=== PATIENT | male | born 1940 | race Caucasian/White ===

== ENCOUNTER 2022-01-14 20:39 | Emergency (ER) | payer MEDICARE, OTHER, SELFPAY ==
--- NOTE | ~2022-01-14 | XR_ITS ---
XR chest 2V 01/14/2022 21:53 Indication: Cough and congestion Procedure: 2 view chest Comparison: 12/13/2015 Findings: Chronic left basilar atelectasis/scarring. No focal air space disease, pulmonary edema, ple ural effusion or suspected pneumothorax. Heart size normal. No acute osseous abnormality. Impression: 1: No acute cardiopulmonary disease. Reviewed, dictated and finalized at location A. Impression: 1: No acute cardiopulmonary disease.
[2022-01-14 20:48] VITALS: BP 148/74; PULSE 86; RESP 16; TEMP 37; O2SAT 96
--- NOTE | 2022-01-14 20:57 | ED.URI ---
HPI - URI/Sore Throat General Chief Complaint: Upper Respiratory Infection Stated Complaint: Cough/lung hurt Time Seen by Provider: 01/14/22 20:57 Source: patient and RN notes reviewed Mode of arrival: ambulatory Limitations: no limitations History of Present Illness MD elicited complaint: cough and other ( Chest congestion) Onset (ago): day(s) (1) Consistency: constant Severity: moderate Able to tolerate fluids by mouth: Yes Exacerbating factors: nothing Relieving factors: nothing Associated symptoms: chills and myalgias Treatments prior to arrival: none Related Data Home Medications Medication Instructions Recorded Confirmed Unable to Obtain Home Medications 01/14/22 01/14/22 Allergies Allergy/AdvReac Type Severity Reaction Status Date / Time Sulfa (Sulfonamide Allergy Swelling Verified 01/14/22 20:59 Antibiotics) Review of Systems Review of Systems: All systems reviewed & are unremarkable except as noted in HPI and below Constitutional: Constitutional: Reports chills Cardiovascular: Cardiovascular: Denies chest pain Respiratory: Respiratory: Denies dyspnea Gastrointestinal: Gastrointestinal: Denies nausea and Denies vomiting [facility] Past Medical History Medical History (Updated 01/14/22 @ 22:43 by Toi Davenport MD) Hyperlipidemia Prostate cancer Social History Social History (Updated 01/14/22 @ 20:59 by Toi Davenport MD) Smoking status: Never smoker Exam Const: General: healthy appearing, no acute distress and alert Nutritional Appearance: well nourished and obese centrally obese Orientation/consciousness: patient oriented x3 HENMT: Head: normal to inspection Ears: external ears normal Eyes: Conjunctivae: conjunctivae normal Pupils: Equal, round and reactive pupils present EOM: EOMs intact bilaterally Neck: Neck: normal visual inspection Resp: Effort & Inspection: normal respiratory effort Auscultation: clear to auscultation bilaterally, no rales and no rhonchi Cardio: Rate: regular rate Rhythm: regular rhythm GI: GI Palp: Yes Soft to palpation and No Tenderness to palpation present (GI) Auscultation: normal bowel sounds Back/Spine/Pelvis: Cervical Spine: cervical ROM normal Thoracic/Lumbar Spine: thoraco-lumbar ROM normal Skin: General skin exam: normal color Rashes: no rashes Neuro: General: patient oriented x3, moves all extremities, no meningeal signs, no focal motor deficits and CN's II-XI intact bilaterally Speech: normal speech Gait exam (Neuro): Normal gait present Psych: Appearance: grossly normal Mental Status: mental status grossly normal Affect: normal affect Thought content: Yes Normal thought content present Course Vital Signs Vital signs: Vital Signs Temperature 37.0 C 01/14/22 20:48 Pulse Rate 86 01/14/22 20:48 Respiratory Rate 16 01/14/22 20:48 Blood Pressure 148/74 H 01/14/22 20:48 Pulse Oximetry 96 01/14/22 20:48 Temperature 37.0 C 01/14/22 20:48 Pulse Rate 82 01/14/22 22:49 Respiratory Rate 16 01/14/22 22:49 Blood Pressure 132/70 01/14/22 22:49 Pulse Oximetry 97 01/14/22 22:49 MDM - URI/Sore Throat Differential Diagnosis Differential diagnosis: Likely upper respiratory infection, viral infection, bronchitis and influenza Lab Data Attestation: I reviewed the patient's lab results. Result diagrams: 01/14/22 21:26 01/14/22 21:26 Labs: Lab Results 01/14/22 01/14/22 01/14/22 Range/Units 21:26 21:26 21:26 WBC 5.6 (4.8-10.8) K/mm3 RBC 5.15 (4.70-6.10) M/mm3 Hgb 15.9 H (12.4-15.3) g/dL Hct 47.8 H (37.0-46.0) % MCV 92.8 (78.0-102.0) fL MCH 30.9 (27.0-31.0) pg MCHC 33.3 (32.0-36.0) g/dL RDW 13.4 (11.6-14.4) % Plt Count 184 (150-420) K/mm3 MPV 10.1 (8.7-11.0) fl Immature Gran % (Auto) 0.2 H (0.0-0.0) % Neut % (Auto) 74.8 H (50.0-70.0) % Lymph % (Auto) 10.4 L (18.0-42.0) % [place] % (Auto) 13.3 H
[2022-01-14 21:30] LABS: Basophils Absolute Auto 0.02 K/mm3 (0.00-0.10); Basophils Percent Auto 0.4 % (0.0-1.0); Eosinophils Absolute Auto 0.05 K/mm3 (0.02-0.50); Eosinophils Percent Auto 0.9 % (1.0-6.0); Hematocrit 47.8 % (37.0-46.0); Hemoglobin 15.9 g/dL (12.4-15.3); Immature Granulocyte Absolute 0.01 K/mm3 (0.00-0.00); Immature Granulocyte Percent A 0.2 % (0.0-0.0); Lymphocytes Absolute Auto 0.58 K/mm3 (1.10-4.50); Lymphocytes Percent Auto 10.4 % (18.0-42.0); Mean Corpuscular HGB Conc 33.3 g/dL (32.0-36.0); Mean Corpuscular Hemoglobin 30.9 pg (27.0-31.0); Mean Corpuscular Volume 92.8 fL (78.0-102.0); Mean Platelet Volume 10.1 fl (8.7-11.0); Monocytes Absolute Auto 0.74 K/mm3 (0.10-0.90); Monocytes Percent Auto 13.3 % (2.0-11.0); Neutrophils Absolute Auto 4.2 K/mm3 (1.7-7.2); Neutrophils Percent Auto 74.8 % (50.0-70.0); Platelet Count Result 184 K/mm3 (150-420); Red Blood Count 5.15 M/mm3 (4.70-6.10); Red Cell Distribution Width 13.4 % (11.6-14.4); White Blood Count 5.6 K/mm3 (4.8-10.8)
[2022-01-14 21:45] LABS: Alanine Aminotransferase 26 U/L (16-63); Albumin Level 3.8 g/dL (3.4-5.0); Alkaline Phosphatase 40 U/L (46-116); Anion Gap 9 mmol/L (8-16); Aspartate Amino Transferase 15 U/L (15-37); Bilirubin,Total 0.6 mg/dL (0.00-1.00); Blood Urea Nitrogen 18 mg/dL (7-18); CRP 2.4 mg/dL (0.0-0.9); Carbon Dioxide 26 mmol/L (21-32); Chloride 102 mmol/L (98-108); Estimated CRCL calculation 39 ml/min; Estimated Glomerular Filt Rate 48; Glucose 115 mg/dL (70-99); Osmolality Calculated 286 mOsm/kg (285-295); Sodium 137 mmol/L (136-145); Total Protein 7.1 g/dL (6.4-8.2)
[2022-01-14 22:07] LABS: SARS-CoV-2 RNA PCR Negative (Negative)
[2022-01-14 22:18] LABS: Influenza Control Valid (Valid)
[2022-01-14] MEDS: OSELTAMIVIR PHOSPHATE 75 MG CAPSULE PO (22:45)
[2022-01-14 22:49] VITALS: BP 132/70; PULSE 82; RESP 16; O2SAT 97
== END 2022-01-14 22:49 | disposition home or self-care (01) ==
PROVIDERS: Emergency Provider Emergency Medicine
DX: J11.1 Influenza due to unidentified influenza virus with other respiratory manifestations (principal); Z20.822 Contact with and (suspected) exposure to COVID-19
CPT/HCPCS: 71046; 80053; 85025; 86140; 87804; 99283; A9270; C9803; U0003; U0005

== ENCOUNTER 2022-02-18 22:36 | Emergency (ER) | payer MEDICARE, OTHER, SELFPAY ==
--- NOTE | ~2022-02-18 | XR_ITS ---
EXAMINATION: XR chest 1V portable DATE: 02/18/2022 23:06 INDICATION: Left anterior chest pain. TECHNIQUE: A single frontal view of the chest was obtained. COMPARISON: Chest 2 views 01/14/2022 FINDINGS: There is mild atelectasis at the lung bases. No pleural effusion or pneumothorax. The heart size is normal. IMPRESSION: 1. Mild atelectasis at the lung bases. Reviewed, dictated and finalized at location A.
[2022-02-18 22:48] VITALS: BP 155/88; PULSE 61; RESP 18; TEMP 36.3; O2SAT 99
--- NOTE | 2022-02-18 22:49 | ECG_ITS ---
Measurements Intervals [place] Rate: 61 P: 42 NV: 191 QRS: -55 QRSD: 117 T: 2 QT: 406 QTc: 411 Interpretive Statements SINUS RHYTHM LEFT ANTERIOR SUPERIOR HEMIBLOCK ABNORMAL ECG NO PREVIOUS ECG AVAILABLE FOR COMPARISON Electronically Signed On 02-19-2022 16:56:31 CDT by Maurizio Sorto M.D.
[2022-02-18 23:00] VITALS: BP 155/88; PULSE 62; RESP 18; O2SAT 96
[2022-02-18] MEDS: ASPIRIN 81 MG CHEWABLE TABLET 324 MG PO (23:11)
[2022-02-18 23:20] LABS: Basophils Absolute Auto 0.03 K/mm3 (0.00-0.10); Basophils Percent Auto 0.5 % (0.0-1.0); Eosinophils Absolute Auto 0.36 K/mm3 (0.02-0.50); Eosinophils Percent Auto 5.8 % (1.0-6.0); Hematocrit 44.5 % (37.0-46.0); Hemoglobin 14.8 g/dL (12.4-15.3); Immature Granulocyte Absolute 0.02 K/mm3 (0.00-0.00); Immature Granulocyte Percent A 0.3 % (0.0-0.0); Lymphocytes Absolute Auto 1.28 K/mm3 (1.10-4.50); Lymphocytes Percent Auto 20.6 % (18.0-42.0); Mean Corpuscular HGB Conc 33.3 g/dL (32.0-36.0); Mean Corpuscular Hemoglobin 31.1 pg (27.0-31.0); Mean Corpuscular Volume 93.5 fL (78.0-102.0); Mean Platelet Volume 10.5 fl (8.7-11.0); Monocytes Absolute Auto 0.57 K/mm3 (0.10-0.90); Monocytes Percent Auto 9.2 % (2.0-11.0); Neutrophils Percent Auto 63.6 % (50.0-70.0); Platelet Count Result 204 K/mm3 (150-420); Red Blood Count 4.76 M/mm3 (4.70-6.10); Red Cell Distribution Width 13.6 % (11.6-14.4); White Blood Count 6.2 K/mm3 (4.8-10.8)
[2022-02-18 23:39] LABS: Alanine Aminotransferase 27 U/L (16-63); Albumin Level 3.7 g/dL (3.4-5.0); Alkaline Phosphatase 42 U/L (46-116); Anion Gap 8 mmol/L (8-16); Aspartate Amino Transferase 16 U/L (15-37); Bilirubin,Total 0.4 mg/dL (0.00-1.00); Blood Urea Nitrogen 19 mg/dL (7-18); Calcium 8.9 mg/dL (8.5-10.1); Carbon Dioxide 28 mmol/L (21-32); Chloride 106 mmol/L (98-108); Estimated Glomerular Filt Rate 50; Glucose 83 mg/dL (70-99); NT Pro B Type Natriuretic Pept 104 pg/mL (0-450); Osmolality Calculated 295 mOsm/kg (285-295); Potassium 3.6 mmol/L (3.5-5.1); Sodium 142 mmol/L (136-145); Total Protein 7.5 g/dL (6.4-8.2); Troponin I 9.4 ng/L (0.00-60.4)
[2022-02-18 23:50] VITALS: BP 141/88; PULSE 61; RESP 18; O2SAT 95
[2022-02-19] VITALS (15 sets, daily range): BP systolic 117–148; BP diastolic 67–99; PULSE 50–77; RESP 16–20; TEMP 36.4; O2SAT 91–97
[2022-02-19 00:05] LABS: Add Urine Microscopic? NO; Appearance Urine Clear (Clear); Bilirubin Urine Negative (Negative); Blood Urine Negative (Negative); Color Urine Light Yellow (Yellow); Glucose Urine UA Negative (Negative); Ketones Urine Negative (Negative); Leukocyte Esterase Ur Negative LEU/UL (Negative); Nitrate Urine Negative (Negative); Protein Urine Negative (Negative); Specific Grav Ur 1.015 (1.010-1.020); Urobilinogen Urine 0.2 mg/dL (0.2-1.0)
[2022-02-19 00:14] LABS: Amphetamine Screen Urine Negative (Negative); Barbiturate Screen Urine Negative (Negative); Benzodiazepines Screen Urine Negative (Negative); Cannabinoid Screen Urine Negative (Negative); Cocaine Screen Urine Negative (Negative); Methadone Screen Urine Negative (Negative); Opiate Screen Urine Negative (Negative); Phencyclidine Screen Urine Negative (Negative)
[2022-02-19 00:47] LABS: Troponin I 10.5 ng/L (0.00-60.4)
[2022-02-19] MEDS: NITROGLYCERIN SL 0.4 MG TABLET SUBLINGUAL ×2 (01:56→02:39)
--- NOTE | 2022-02-19 02:06 | PC.NURSE ---
RN administered one 0.4mg tablet sublingual for chest pressure on the left midaxillary that he rates a 1. After 10 minutes pt has no change in pressure and still rates the pain a 1. Pt refuses any other doses of nitro at this time.
--- NOTE | 2022-02-19 02:34 | ED.CHESTPAIN ---
HPI - Chest Pain General Chief Complaint: Chest Pain Stated Complaint: chest pain Time Seen by Provider: 02/18/22 22:40 Source: patient, family and RN notes reviewed Mode of arrival: ambulatory Limitations: no limitations History of Present Illness MD complaint: chest pain Pertinent past history: coronary artery disease Onset (ago): hour(s) (6) Timing of current episode: episodic Prior episodes: Yes Onset: during rest Pain location: left chest Severity: mild Pain scale (0-10): 3 Quality: aching and heaviness Relieving factors: nothing Exacerbating factors: nothing Treatment prior to arrival: aspirin Related Data Home Medications Medication Instructions Recorded Confirmed Adult Low Dose Aspirin 81 mg PO DAILY 02/19/22 02/19/22 tadalafil 20 mg PO DAILY PRN 02/19/22 02/19/22 tamsulosin 0.8 mg [facility] 02/19/22 02/19/22 Allergies Allergy/AdvReac Type Severity Reaction Status Date / Time latex Allergy Blister Verified 02/19/22 06:09 Sulfa (Sulfonamide Allergy Swelling Verified 01/14/22 20:59 Antibiotics) Review of Systems Review of Systems: All systems reviewed & are unremarkable except as noted in HPI and below PMFSH Past Medical History Medical History Angina at rest Hyperlipidemia Prostate cancer Family History Family History Mother Skin cancer Diabetes mellitus Father Lung disease Social History Social History Smoking status: Never smoker Alcohol intake: current Drinks per week: 2 Substance use: never Spiritual care concerns: No Exam Const: General: healthy appearing, no acute distress and alert Nutritional Appearance: well nourished Orientation/consciousness: patient oriented x3 Limitations: no limitations HENMT: Head: normal to inspection Ears: external ears normal, TM's normal bilaterally and EAC's normal General nose exam: Normal external nose present and Normal nares present Face and sinus: normal facial exam and sinuses nontender Mouth: Yes moist mucous membranes Eyes: Conjunctivae: conjunctivae normal Pupils: Equal, round and reactive pupils present EOM: EOMs intact bilaterally Neck: Neck: normal visual inspection Chest: Chest palpation & inspection: normal inspection of the chest Resp: Effort & Inspection: normal respiratory effort Auscultation: clear to auscultation bilaterally Cardio: Rate: regular rate Rhythm: regular rhythm GI: Auscultation: normal bowel sounds : General: Yes bladder normal to palpation and Yes no CVA tenderness Male General Exam: Yes normal external exam Back/Spine/Pelvis: Back: no CVA tenderness Skin: General skin exam: normal color Neuro: General: patient oriented x3, moves all extremities, no meningeal signs, no focal motor deficits and CN's II-XI intact bilaterally Extrem: General: normal to inspection and no pedal edema Psych: Appearance: grossly normal and well kempt Mental Status: mental status grossly normal Affect: normal affect Attitude: cooperative Thought content: Yes Normal thought content present Course Course Emergency Course: Pt was stable, with #2 chest pain episodes while in the ED Reevaluation(s) Date: 02/18/22 Time: 23:37 Vital Signs Vital signs: Vital Signs Temperature 36.3 C L 02/18/22 22:48 Pulse Rate 61 02/18/22 22:48 Respiratory Rate 18 02/18/22 22:48 Blood Pressure 155/88 H 02/18/22 22:48 Pulse Oximetry 99 02/18/22 22:48 Temperature 36.4 C 02/19/22 05:03 Pulse Rate 60 02/19/22 05:03 Respiratory Rate 20 02/19/22 05:03 Blood Pressure 129/79 02/19/22 05:03 Pulse Oximetry 97 02/19/22 05:03 MDM - Chest Pain Differential Diagnosis Differential diagnosis: Likely unstable angina pectoris, atypical chest pain and chest pain Medical Records Data Attestation: I reviewed the patient's me
--- NOTE | 2022-02-19 02:41 | PC.NURSE ---
While talking to pt, states his pain spiked for 15 seconds to a 3. RN administered one 0.4 tablet of nitro sublingual.
--- NOTE | 2022-02-19 03:33 | PC.NURSE ---
Pt has been accepted by [facility] Dr. Hong. Waiting on room assignement.
[2022-02-19] MEDS: SODIUM CHLORIDE 0.9% IV 500 ML 999 ML IV CONT (03:50)
--- NOTE | 2022-02-19 04:48 | PC.NURSE ---
RN updated ERP on status and ERP ordered for a 500mL NSS bolus to flow at a rate of 999mLs/hr. Due to an issue with EHR, the order was unable to be put into the computer. Fluids were started in pt's left forearm at 0350. The bolus was finished at 0430.
== END 2022-02-19 05:10 | disposition short-term general hospital (02) ==
PROVIDERS: Emergency Provider Emergency Medicine
DX: I20.9 Angina pectoris, unspecified (principal); E78.5 Hyperlipidemia, unspecified; Z85.46 Personal history of malignant neoplasm of prostate; Z79.899 Other long term (current) drug therapy
CPT/HCPCS: 36415; 71045; 80053; 80307; 81003; 83880; 84484; 85025; 93005; 96360; 99285; A9270; J7040

== ENCOUNTER 2022-02-19 04:47 | Observation (INO) | payer MEDICARE, OTHER, SELFPAY ==
[2022-02-19] VITALS (8 sets, daily range): BP systolic 138–151; BP diastolic 76–95; PULSE 46–71; RESP 14–20; TEMP 36.4–36.7; O2SAT 97–100; BMI 30.1
--- NOTE | 2022-02-19 | EST_ITS ---
Patient Info Name: Derrek John Age: 82 years : 1940 Gender: Male Ht: 70 in Wt: 209 lbs BSA: 2.19 m2 HR: 45 bpm BP: 130 / 85 mmHg Exam Date: 02/19/2022 1:47 PM Exam Location: [facility] Pul[facility] Patient Status: Inpatient Admit Date: 02/19/2022 Staff Ordering Physician: Maurizio Sorto MD Digital Media Specialist: Omayra Ortiz RDCS Attending Provider: DR SORTO Exercise Technologist: Felicia Hinkle CT Exam Type: CA stress echo Study Info Indications R07.9 - Chest pain, unspecified Treadmill exercise stress echocardiogram is performed. Summary 1. Normal sinus rhythm. 2. Left axis deviation, occasional PVC. 3. Left ventricular chamber size, wall thickness, systolic and diastolic function are normal with no regional wall motion abnormalities with an estimated ejection fraction of Empty. 4. All segments augment contractility normal no ischemic wall motion abnormality. 5. Graded exercise test clinically and electrocardiographically negative at 91% of age predicted maximum heart rate. Stress Echo Findings Left Ventricle All segments augment contractility normal no ischemic wall motion abnormality. Left Ventricle Left ventricular chamber size, wall thickness, systolic and diastolic function are normal with no regional wall motion abnormalities with an estimated ejection fraction of Empty. Protocol: Jamie Stress ECG Details Stage: REST Duration (min): 1 min : 8 sec Speed (mph): 0.0 Grade (%): 0 HR (bpm): 48 SBP (mmHg): 130 DBP (mmHg): 85 METS: --- Stage: REST Duration (min): 12 min : 44 sec Speed (mph): 0.0 Grade (%): 0 HR (bpm): 52 SBP (mmHg): 130 DBP (mmHg): 85 METS: --- Stage: STAGE 1 Duration (min): 1 min : 0 sec Speed (mph): 1.7 Grade (%): 10 HR (bpm): 85 SBP (mmHg): 130 DBP (mmHg): 85 METS: --- Stage: STAGE 1 Duration (min): 2 min : 0 sec Speed (mph): 1.7 Grade (%): 10 HR (bpm): 91 SBP (mmHg): 130 DBP (mmHg): 85 METS: --- Stage: STAGE 1 Duration (min): 3 min : 0 sec Speed (mph): 1.7 Grade (%): 10 HR (bpm): 93 SBP (mmHg): 209 DBP (mmHg): 82 METS: --- Stage: STAGE 2 Duration (min): 1 min : 0 sec Speed (mph): 2.5 Grade (%): 12 HR (bpm): 107 SBP (mmHg): 209 DBP (mmHg): 82 METS: --- Stage: STAGE 2 Duration (min): 2 min : 0 sec Speed (mph): 2.5 Grade (%): 12 HR (bpm): 118 SBP (mmHg): 264 DBP (mmHg): 86 METS: --- Stage: STAGE 2 Duration (min): 3 min : 0 sec Speed (mph): 2.5 Grade (%): 12 HR (bpm): 127 SBP (mmHg): 264 DBP (mmHg): 86 METS: --- Stage: STAGE 3 Duration (min): 0 min : 2 sec Speed (mph): 0.0 Grade (%): 0 HR (bpm): 127 SBP (mmHg): 264 DBP (mmHg): 86 METS: --- Stage: RECOVERY Duration (min): 0 min : 57 sec Speed (mph): 0.0 Grade (%): 0 HR (bpm): 97 SBP (mmHg): 246 DBP (mmHg): 55 METS: --- Stage:
--- NOTE | ~2022-02-19 | CT_ITS ---
EXAMINATION: CTA chest PE protocol DATE: 02/19/2022 15:43 INDICATION: Left-sided chest pain TECHNIQUE: Computed tomography angiography (CTA) of the chest was performed with 100 mL Omnipaque-350 intravenous contrast timed to evaluate the pulmonary arteries. Coronal maximum intensity projection 3D-reconstructions were created by the technologist. The dose-length product (DLP) was 603.07 mGy-cm. Automated exposure control and iterative reconstruction technique were employed. COMPARISON: None. FINDINGS: The pulmonary arteries are well-opacified. No pulmonary embolism is identified. There is mi ld atelectasis. There is no pleural effusion or pneumothorax. No pathologically enlarged thoracic lym ph nodes are identified. The heart size is normal. Calcified coronary artery atherosclerosis is noted . There is moderate thoracic spondylosis. IMPRESSION: 1. No pulmonary embolism or acute cardiopulmonary abnormality. Reviewed, dictated and finalized at location F.
--- NOTE | 2022-02-19 05:47 | ADMGEN ---
This patient, Derrek John, was admitted to Intensive Care Unit-9. Patient/family oriented to hospital policies and general routines including ID bracelet, bed and alarms, visiting hours, pain management, procedures, bathroom and other care routines, personal items, smoking policy, room service/diet, and visiting hours. Information on how to activate the Rapid Response Team has been discussed. Patient/Family are encouraged to report perceived risks to care and to ask questions if they do not understand what they are told or what they should do.
[2022-02-19] MEDS: ASPIRIN 81 MG ENTERIC TABLET PO (09:35)
--- NOTE | 2022-02-19 11:29 | ECG_ITS ---
Measurements Intervals [place] Rate: 56 P: 58 MT: 200 QRS: -48 QRSD: 124 T: 8 QT: 413 QTc: 399 Interpretive Statements SINUS BRADYCARDIA WITH OCCASIONAL VENTRICULAR PREMATURE COMPLEXES LEFT ANTERIOR HEMIBLOCK COMPARED TO ECG 02/18/2022 22:51:35 SINUS BRADYCARDIA NOW PRESENT Electronically Signed On 02-19-2022 16:48:49 CDT by Maurizio Sorto M.D.
--- NOTE | 2022-02-19 11:30 | PM.IMHP ---
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 Hyperlipidemia Prostate cancer Family History Family History (Updated 02/19/22 @ 06:31 by Sally Aguillon RN) Mother Skin cancer Diabetes mellitus Father Lung disease Social History Social History Smoking status: Never smoker Alcohol intake: current Drinks per week: 2 Substance use: never Spiritual care concerns: No Meds Home Medications and Allergies Home Medications Medication Instructions Recorded Confirmed Type Adult Low Dose Aspirin 81 mg PO DAILY 02/19/22 02/19/22 History tadalafil 20 mg PO DAILY PRN 02/19/22 02/19/22 History tamsulosin 0.8 mg [facility] HS 02/19/22 02/19/22 History Allergies Allergy/AdvReac Type Severity Reaction Status Date / Time latex Allergy Blister Verified 02/19/22 06:09 Sulfa (Sulfonamide Allergy Swelling Verified 01/14/22 20:59 Antibiotics) Vital Signs Vital Signs - 24 hr 02/19/22 05:53 02/19/22 06:00 02/19/22 06:11 Temperature 97.6 F Pulse Rate 47 L 46 L Respiratory Rate 16 Blood Pressure 138/81 Pulse Oximetry 100 100 02/19/22 08:00 02/19/22 10:00 Temperature 97.6 F Pulse Rate 46 L 48 L Respiratory Rate 14 Blood Pressure 149/77 H Pulse Oximetry 100 Assessment and Plan Additional Plan atypical chest pain. no prior cad. ekg with no acute st t chagnes. trops negative. repeat and monitor. echo. cardiology has been consulted. lexiscan can be planned while inpatient, will leave this upto cardiology if he feels otherwise. labs okay. cxr is unremarkable. will get d dimer to evaluate for PE, however looks unlikely. msk related pain most likely. recently had influenza a month ago. BPH on tamsulosin DVT proph: SCDs Full code status
[2022-02-19 12:04] LABS: Basophils Percent Auto 0.7 % (0.2-1.2); Eosinophils Absolute Auto 0.3 K/mm3 (0-0.3); Eosinophils Percent Auto 5.8 % (0-4.4); Hematocrit 43.6 % (42.0-52.0); Hemoglobin 14.4 g/dL (14.0-18.0); Immature Granulocyte Absolute 0.02 K/mm3 (0.00-0.031); Immature Granulocyte Percent A 0.4 % (0-0.5); Lymphocytes Absolute Auto 1.34 K/mm3 (0.9-3.2); Lymphocytes Percent Auto 24.9 % (18.3-44.2); Mean Corpuscular Volume 93.8 fl (80-100); Monocytes Absolute Auto 0.5 K/mm3 (0.1-0.6); Monocytes Percent Auto 9.8 % (2.6-8.5); Neutrophils Absolute Auto 3.2 K/mm3 (1.3-6.7); Neutrophils Percent Auto 58.4 % (45.5-73.1); Platelet Count Result 200 k/mm3 (150-375); Red Blood Count 4.65 M/mm3 (4.6-6.20); White Blood Count 5.4 K/mm3 (4.5-10.0)
[2022-02-19 12:20] LABS: Anion Gap 2 mmol/L (8-16); Blood Urea Nitrogen 18 mg/dL (9-20); Calcium 8.7 mg/dL (8.4-10.2); Carbon Dioxide 30 mmol/L (22-30); Chloride 107 mmol/L (98-107); Estimated CRCL calculation 55 ml/min; Estimated Glomerular Filt Rate > 60; Glucose 91 mg/dL (65-110); Sodium 139 mmol/L (137-145)
[2022-02-19 12:21] LABS: D Dimer 0.83 ug/mL (<0.48)
[2022-02-19 12:32] LABS: Troponin I < 0.012 ng/mL (0.000-0.034)
--- NOTE | 2022-02-19 12:33 | PM.CNCAR ---
Assessment and Plan Additional Plan This is an 82-year-old gentleman with intermittent chest pain that is very atypical of a not very suggestive of myocardial ischemia. He does not have many coronary risk factors other than stating he has some mild hypercholesterolemia that his physician has told him about several times over the years. He appears to be stable there is no evidence of acute coronary syndrome. He does report having a negative coronary angiogram but once again that about 20 years ago. I am going to recommend a stress echocardiogram that I can hopefully get done this afternoon and if that is normal he can be dismissed. Maurizio Sorto MD [facility] History of Present Illness History of Present Illness Consult date/time: 02/19/22 12:33 Consult reason: chest pain Reason For Visit: Chest Pain Narrative: This is an 82-year-old man I am seeing this afternoon at the request of the hospitalist after he was transferred here from [place] emergency room with some chest pain yesterday. The patient states he is not known to have any cardiac problems prior to this and states that he had a flu-like illness about a month ago with chest congestion and coughing. This illness lasted for about 5-7 days and with when that was going on he was having some intermittent episodes of chest pain. He describes this as a brief intermittent sharp sensation in the center of the precordium without any radiation or other associated symptoms. The symptoms last about 5-7 seconds each time would happen and then resolved. He was told by his physician this is probably related to his flu and he was feeling better after the illness resolved. Yesterday he had more of the symptoms of brief episodes of sharp pain but he otherwise was feeling well. Because of this he and his family decided to come to the emergency room in [place] for evaluation. Does not look like there was any objective evidence of an acute coronary syndrome identified. His electrocardiogram demonstrates a sinus mechanism with a left anterior hemiblock but no acute ST segment abnormalities. His troponin levels were negative. He was transferred to [facility] for further evaluation. In his normal state of health he is an active gentleman even though he is getting older he does not have any exertional symptomatology he is able to carry on normal daily activities. He does not have any exertional dyspnea orthopnea PND edema or history of syncope. Interestingly he did state about 20 years ago he had a chest pain evaluation at another hospital which included a stress test that was apparently somewhat abnormal because was followed by a coronary angiogram that was negative. Once again that was about 20 years ago. Review of Systems Constitutional: Constitutional: Reports no additional constitutional complaints Eyes: Eyes: Reports no additional eye complaints ENT: Reports system reviewed and no additional complaints, except as documented Cardiovascular: Cardiovascular: Reports as per HPI Respiratory: Respiratory: Reports no additional respiratory complaints Gastrointestinal: Gastrointestinal: Reports no additional gastrointestinal complaints Musculoskeletal: Musculoskeletal: Reports no additional musculoskeletal complaints Integumentary/Breasts: Skin/Breast: Reports system reviewed and no additional complaints, except as docu Neurologic: Reports system reviewed and no additional complaints, except as documented Endocrine: Endocrine: Reports no additional endocrine complaints Hematologic/Lymphatic: Hematologic/Lymphatic: Reports no additional hematologic/lymphatic complaints Allergic/Immunologic: Allergic/Immunologic: Reports no additional allergic/immunologic complaints [facility] Past Medical History Medical History 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
--- NOTE | 2022-02-19 16:33 | PM.SD2 ---
Same Day Admit/Disch: HPI History of Present Illness Chief complaint: Chest Pain Narrative: Derrek John is a 82 year old male who presented to the outside hospital ed with chest pain on left side of his chest. he was recentlyl dignosed with influenza a month ago and had left sided chest pain back then as well. the pain was mild on his left chest stabbing in nature, non radiating, no associated nausea,vomiting, diaphoresis or sob. the pain is not exertional as well. a month ago, the pain was associated with some soreness in the same area. he denies any ongoing use of nsaids. he also denies any overt muscular exertion. no fever, chills. no cough. he was trasnferre to this hospital for cardiac evaluation. his initail troponin were negative. EKG did not reveal any acute ST T changes. serial troponins were negative as well. 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 Hyperlipidemia Prostate cancer Family History Family History (Updated 02/19/22 @ 06:31 by Sally Aguillon RN) Mother Skin cancer Diabetes mellitus Father Lung disease Social History Social History Smoking status: Never smoker Alcohol intake: current Drinks per week: 2 Substance use: never Spiritual care concerns: No Same Day Admit/Disch: Med Pre-admit Medications Home Medications Medication Instructions Recorded Confirmed Type Adult Low Dose Aspirin 81 mg PO DAILY 02/19/22 02/19/22 History tadalafil 20 mg PO DAILY PRN 02/19/22 02/19/22 [facility] 02/19/22 02/19/22 History Exam Narrative: GENERAL: The patient is well developed, not in acute distress HEENT: Nonicteric sclerae, PERRLA, EOMI. Oropharynx clear. Moist mucous membranes. Conjunctivae appear well perfused. CHEST: Chest wall is nontender. HEART: Regular rate and rhythm without murmur, rubs, or gallops LUNGS: Clear to auscultation bilaterally. no respiratory distress ABDOMEN: Soft, positive bowel sounds, non-tender, no organomegaly. SKIN: No rash, no excessive bruising, petechiae, or purpura. NEUROLOGIC: Cranial nerves II-XII intact, alert and oriented x 3, no gross motor deficits EXTREMITIES: no edema, cyanosis or clubbing Extrem: General: normal exam except as noted and no edema DS: Data Data Completed and Pending Labs on day of discharge: Labs from last 24 hours 02/19/22 02/19/22 02/19/22 11:44 11:44 11:44 WBC 5.4 RBC 4.65 Hgb 14.4 Hct 43.6 MCV 93.8 MCH 31.0 MCHC 33.0 RDW 14.0 Plt Count 200 MPV 11.0 H Immature Gran % (Auto) 0.4 Neut % (Auto) 58.4 Lymph % (Auto) 24.9 Mayes % (Auto) 9.8 H Eos % (Auto) 5.8 H Baso % (Auto) 0.7 Lymph # (Auto) 1.34 Mayes # (Auto) 0.5 Eos # (Auto) 0.3 Baso # (Auto) 0.0 Abs Immat Gran (auto) 0.02 Absolute Neuts (auto) 3.2 Absolute Nucleated RBC 0.0 Nucleated RBC % 0.0 D-Dimer Sodium 139 Potassium 4.0 Chloride 107 Carbon Dioxide 30 Anion Gap 2 L BUN 18 Creatinine 1.10 Estim Creat Clear Calc 55 Estimated GFR > 60 Glucose 91 Calcium 8.7 Troponin I < 0.012 02/19/22 11:44 WBC RBC Hgb Hct MCV MCH MCHC RDW Plt Count MPV Immature Gran % (Auto) Neut % (Auto) Lymph % (Auto) Mayes % (Auto) Eos % (Auto) Baso % (Auto) Lymph # (Auto) Mayes # (Auto) Eos # (Auto) Baso # (Auto) Abs Immat Gran (auto) Absolute Neuts (auto) Absolute Nucleated RBC Nucleated RBC % D-Dimer 0.83 H Sodium Potassium Chloride Carbon Dioxide Anion Gap BUN Creatinine Estim Creat Clear Calc Estimated GFR Glucose Calcium Troponin I Imaging Radiologist's impression: ITS Impressions Chest CTA 02/19/22 16:13 IMPRESSION: 1. No pulmonary embolism or acute cardiopulmonary abnormality. DS: Summary Hospital Course [facility]
== END 2022-02-19 17:15 | disposition home or self-care (01) ==
PROVIDERS: Admitting Provider Internal Medicine; Visit Provider Internal Medicine
DX: R07.89 Other chest pain (principal); E78.5 Hyperlipidemia, unspecified; Z85.46 Personal history of malignant neoplasm of prostate; Z79.82 Long term (current) use of aspirin
CPT/HCPCS: 36415; 71275; 80048; 84484; 85025; 85380; 93005; 93351; A9270; G0378; Q9967

== ENCOUNTER 2023-02-25 19:49 | Emergency (ER) | payer MEDICARE, OTHER, SELFPAY ==
[2023-02-25] VITALS (8 sets, daily range): BP systolic 108–177; BP diastolic 60–98; PULSE 54–84; RESP 16–20; TEMP 36.5–36.8; O2SAT 94–99
--- NOTE | ~2023-02-25 | CT_ITS ---
EXAMINATION: CTA chest DATE: 02/25/2023 21:34 INDICATION: ACUTE SUBSTERNAL CP W/ POSTERIOR BILATERAL NECK PAIN TODAY. TECHNIQUE: Computed tomography (CT) of the chest was performed with 100 mL Omnipaque-350 intravenous contrast, timed to the arterial phase. Volume rendered imaging was performed by the technologist on a separate workstation. Automated exposure control and iterative reconstruction technique were employe d. The dose-length product was 858.53 mGy-cm. COMPARISON: 02/19/2022. FINDINGS: CHEST: Thoracic aorta: Maximum diameter of the ascending aorta is 3.6 cm. Maximum diameter of the descending aorta is 3.1 cm. Mild thoracic aortic calcification. Lung parenchyma and airways: Senescent changes in the lungs. Mild dependent atelectasis/scar. The air ways are patent. Thoracic inlet, axillae and chest wall: 9 mm right thyroid lobe nodule which requires no additional w orkup. No axillary lymphadenopathy. Mediastinum: No mass or lymphadenopathy. Small hiatal hernia. Heart and pericardium: Normal heart size. No pericardial effusion. Coronary artery calcifications: Mild. Pleura: No effusion or mass. Upper abdomen: No significant finding. Simple right upper pole cyst. Thoracic bones: No acute osseous finding in the chest. IMPRESSION: No acute thoracic process detected. Specifically, there is no thoracic aortic aneurysm or dissection Reviewed, dictated and finalized at location K. IMPRESSION: No acute thoracic process detected. Specifically, there is no thoracic aortic a neurysm or dissection
--- NOTE | ~2023-02-25 | XR_ITS ---
EXAMINATION: XR chest 1V portable Exam Date/Time: 02/25/2023 20:17 CDT HISTORY: ACUTE SUBSTERNAL CHEST PAIN WITH POSTERIOR BILATERAL NECK PA Comparison: 02/18/2022. RESULT: Lines, tubes, and devices: None. Lungs and pleura: Streaky bibasilar opacities likely representing scar/atelectasis. Cardiomediastinal silhouette: Stable. Other: No acute osseous or upper abdominal finding. IMPRESSION: No acute cardiopulmonary process. Reviewed, dictated and finalized at location K.
--- NOTE | 2023-02-25 19:52 | ECG_ITS ---
Measurements Intervals [place] Rate: 74 P: 30 OR: 197 QRS: -55 QRSD: 111 T: 65 QT: 382 QTc: 424 Interpretive Statements SINUS RHYTHM INCOMPLETE RIGHT BUNDLE BRANCH BLOCK LOW QRS VOLTAGE IN PRECORDIAL LEADS LEFT ANTERIOR FASCICULAR BLOCK BASELINE ARTIFACT- I, III, AVR, AVL, AVF, V4 ABNORMAL ECG COMPARED TO ECG 02/19/2022 15:08:49 SINUS RHYTHM NOW PRESENT Electronically Signed On 02-25-2023 21:11:41 CDT by Arnaldo Salamanca D.O.
[2023-02-25 20:08] LABS: Basophils Absolute Auto 0.04 K/mm3 (0.00-0.10); Basophils Percent Auto 0.5 % (0.0-1.0); Eosinophils Percent Auto 1.2 % (1.0-6.0); Hematocrit 47.1 % (37.0-46.0); Hemoglobin 15.7 g/dL (12.4-15.3); Immature Granulocyte Absolute 0.02 K/mm3 (0.00-0.00); Immature Granulocyte Percent A 0.2 % (0.0-0.0); Lymphocytes Percent Auto 12.4 % (18.0-42.0); Mean Corpuscular HGB Conc 33.3 g/dL (32.0-36.0); Mean Corpuscular Hemoglobin 30.8 pg (27.0-31.0); Mean Corpuscular Volume 92.5 fL (78.0-102.0); Mean Platelet Volume 10.3 fl (8.7-11.0); Monocytes Absolute Auto 0.59 K/mm3 (0.10-0.90); Monocytes Percent Auto 7.3 % (2.0-11.0); Neutrophils Absolute Auto 6.3 K/mm3 (1.7-7.2); Neutrophils Percent Auto 78.4 % (50.0-70.0); Platelet Count Result 207 K/mm3 (150-420); Red Blood Count 5.09 M/mm3 (4.70-6.10); Red Cell Distribution Width 13.3 % (11.6-14.4); White Blood Count 8.1 K/mm3 (4.8-10.8)
--- NOTE | 2023-02-25 20:08 | ED.CHESTPAIN ---
HPI - Chest Pain General Chief Complaint: Chest Pain Stated Complaint: Chest Pain Time Seen by Provider: 02/25/23 19:51 History of Present Illness HPI narrative: This is an 83-year-old male with past history of hyperlipidemia, who presents to the emergency department complaining of bilateral neck pain for the past hour. He states after cutting the grass, he developed quick onset bilateral neck pain described as sharp, accompanied by the sensation that someone is strangling him. He denies weakness, numbness, loss of vision or hearing or other difficulty breathing. He also complains of similar pressure-like chest pain, that began at the same time. Related Data Home Medications Medication Instructions Recorded Confirmed Adult Low Dose Aspirin 81 mg PO DAILY 02/19/22 02/25/23 tadalafil 20 mg tablet 20 mg PO DAILY PRN Erectile 02/19/22 02/25/23 Dysfunction tamsulosin 0.8 mg BYMOUTH HS 02/19/22 02/25/23 Allergies Allergy/AdvReac Type Severity Reaction Status Date / Time latex Allergy Blister Verified 02/19/22 06:09 Sulfa (Sulfonamide Allergy Swelling Verified 01/14/22 20:59 Antibiotics) Review of Systems Review of Systems: CONSTITUTIONAL: Denies fever, chills, or sweats. CARDIOVASCULAR: Bilateral neck pain, chest pain denies palpitations, or edema. RESPIRATORY: Denies cough or dyspnea. GASTROINTESTINAL: Denies abdominal pain, nausea, vomiting, or diarrhea. GENITOURINARY: Denies dysuria or hematuria. SKIN: Denies rash or itching. MUSCULOSKELETAL: Denies back pain, joint pain, or myalgia. NEUROLOGIC: Denies headache, numbness, dizziness, or weakness. PSYCHIATRIC: Denies anxiety or depression. PMFSH Past Medical History Medical History Angina at rest Hyperlipidemia Prostate cancer Family History Family History Mother Skin cancer Diabetes mellitus Father Lung disease Social History Social History Smoking status: Never smoker Alcohol intake: current Drinks per week: 2 Substance use: never Spiritual care concerns: No Exam Narrative: GENERAL: Well-developed, well-nourished, and in no acute distress. Appears uncomfortable HEAD: Normocephalic, atraumatic. EYES: PERRLA and EOMI. ENT: Nares clear, no rhinorrhea or epistaxis. Mucous membranes moist. Oropharynx without tonsillar hypertrophy exudate or other lesions. NECK: Supple. No adenopathy or masses. No carotid bruits or JVD. CHEST: Clear to auscultation. No respiratory distress. No wheezes rales or rhonchi HEART: Regular rate and rhythm. No murmur heard. Normal peripheral pulses. ABDOMEN: Soft, nontender, nondistended, normal active bowel sounds. EXTREMITIES: Normal range of motion. No edema. SKIN: Warm, dry, no rash. NEURO: No focal deficits. Alert and oriented x3. PSYCH: Normal mood and affect. Course Course Emergency Course: 20:32 - Bedside ultrasound of the bilateral carotids done by me is not immediately concerning for dissection. 20:38 - Initial high-sensitivity troponin elevated to 89.6. The description of the patient's pain and presence of elevated troponin increases my concern for dissection. CBC unremarkable. INR 1.0. Chemistries demonstrate creatinine elevation of 1.48. The patient's baseline appears to be 1, though he has had creatinine elevations to 1.4 previously. Chest x-ray not concerning for pneumothorax or other consolidation. 21:10 - My review of the patient's CTA is not concerning for dissection. Radiology read pending. Will repeat high-sensitivity troponin at 2 hours along with EKG. 21:57 - Repeat EKG shows progressive T wave changes in aVL but is otherwise not concerning for STEMI. CTA negative for dissection and negative for other acute cardiothoracic process. Contacted [facility] for transfer, no IMU beds are available. Will a
[2023-02-25 20:20] LABS: Prothrombin Time 10.6 Seconds (9.50-12.10)
[2023-02-25] MEDS: MORPHINE SULFATE (*CRX) 4 MG/ML INJ IM (20:22)
[2023-02-25] MEDS: ONDANSETRON INJ 4 MG/2 ML VIAL IV PUSH (20:22)
[2023-02-25 20:27] LABS: Alanine Aminotransferase 34 U/L (16-63); Alkaline Phosphatase 45 U/L (46-116); Anion Gap 10 mmol/L (8-16); Aspartate Amino Transferase 19 U/L (15-37); Bilirubin,Total 0.5 mg/dL (0.00-1.00); Blood Urea Nitrogen 19 mg/dL (7-18); Calcium 9.2 mg/dL (8.5-10.1); Carbon Dioxide 29 mmol/L (21-32); Chloride 103 mmol/L (98-108); Estimated CRCL calculation 40 ml/min; Estimated Glomerular Filt Rate 46; Glucose 95 mg/dL (70-99); Osmolality Calculated 296 mOsm/kg (285-295); Sodium 142 mmol/L (136-145); Total Protein 7.5 g/dL (6.4-8.2)
[2023-02-25 20:29] LABS: Troponin I 89.6 ng/L (0.00-60.4)
--- NOTE | 2023-02-25 22:00 | ECG_ITS ---
Measurements Intervals [place] Rate: 54 P: 30 MI: 202 QRS: -53 QRSD: 121 T: 34 QT: 406 QTc: 388 Interpretive Statements SINUS BRADYCARDIA BORDERLINE AV CONDUCTION DELAY INCOMPLETE RIGHT BUNDLE BRANCH BLOCK LEFT ANTERIOR FASCICULAR BLOCK POOR R WAVE PROGRESSION, ANTERIOR LEADS ABNORMAL ECG COMPARED TO ECG 02/25/2023 20:12:15 SINUS BRADYCARDIA NOW PRESENT Electronically Signed On 02-26-2023 6:46:42 CDT by Arnaldo Salamanca D.O.
[2023-02-25 22:32] LABS: Troponin I 263.9 ng/L (0.00-60.4)
[2023-02-26 01:09] VITALS: BP 150/80; PULSE 70; RESP 16; O2SAT 96
--- NOTE | 2023-02-26 01:10 | PC.NURSE ---
to start heparin after 1am PTT/PT/CBC results
[2023-02-26 01:22] LABS: Basophils Absolute Auto 0.04 K/mm3 (0.00-0.10); Basophils Percent Auto 0.5 % (0.0-1.0); Eosinophils Absolute Auto 0.07 K/mm3 (0.02-0.50); Eosinophils Percent Auto 0.8 % (1.0-6.0); Hematocrit 46.3 % (37.0-46.0); Hemoglobin 15.3 g/dL (12.4-15.3); Immature Granulocyte Absolute 0.03 K/mm3 (0.00-0.00); Immature Granulocyte Percent A 0.4 % (0.0-0.0); Lymphocytes Absolute Auto 1.14 K/mm3 (1.10-4.50); Lymphocytes Percent Auto 13.8 % (18.0-42.0); Mean Corpuscular Hemoglobin 30.7 pg (27.0-31.0); Mean Platelet Volume 10.3 fl (8.7-11.0); Monocytes Absolute Auto 0.56 K/mm3 (0.10-0.90); Monocytes Percent Auto 6.8 % (2.0-11.0); Neutrophils Absolute Auto 6.4 K/mm3 (1.7-7.2); Neutrophils Percent Auto 77.7 % (50.0-70.0); Platelet Count Result 209 K/mm3 (150-420); Red Blood Count 4.98 M/mm3 (4.70-6.10); Red Cell Distribution Width 13.6 % (11.6-14.4); White Blood Count 8.2 K/mm3 (4.8-10.8)
[2023-02-26 01:37] LABS: Partial Thromboplastin Time 26.2 SEC (23.90-30.70); Prothrombin Time 10.7 Seconds (9.50-12.10)
[2023-02-26 01:48] LABS: Troponin I 975.9 ng/L (0.00-60.4)
[2023-02-26] MEDS: HEPARIN SODIUM 5,000 UNITS/ML VIAL 7500 UNITS IV PUSH (01:56)
[2023-02-26] MEDS: HEPARIN SOD/D5W 100 UNITS/ML 25,000 UNITS/250 ML BAG 10 UNITS IV CONT (01:58)
[2023-02-26 02:10] VITALS: BP 138/90; PULSE 68; RESP 18; TEMP 36.6; O2SAT 98
[2023-02-26 03:25] VITALS: BP 149/90; PULSE 69; RESP 19; O2SAT 98
[2023-02-26 03:51] VITALS: BP 122/64; PULSE 62; RESP 18; TEMP 37.2; O2SAT 98
== END 2023-02-26 03:52 | disposition short-term general hospital (02) ==
PROVIDERS: Emergency Provider Preventive Medicine Aerospace Medicine
DX: I21.4 Non-ST elevation (NSTEMI) myocardial infarction (principal); M54.2 Cervicalgia; R74.8 Abnormal levels of other serum enzymes; Z85.46 Personal history of malignant neoplasm of prostate; Z79.82 Long term (current) use of aspirin
CPT/HCPCS: 36415; 71045; 71275; 80053; 84484; 85025; 85610; 85730; 93005; 96365; 96366; 96372; 96375; 99291; J1644; J2270; J2405; Q9967

== ENCOUNTER 2023-12-02 17:50 | Observation (INO) | payer MEDICARE, OTHER, SELFPAY ==
--- NOTE | ~2023-12-02 | CT_ITS ---
EXAMINATION: CTA brain carotid DATE: 12/02/2023 19:19 INDICATION: CVA TECHNIQUE: Computed tomographic angiography (CTA) of the head and neck was performed with 100 mL Omni paque-350 intravenous contrast. Automated exposure control and iterative reconstruction technique wer e employed. The dose-length product was 1059.79 mGy-cm. Maximum intensity projection and volume rend ered 3D-reconstructions were created by the technologist on a separate workstation. COMPARISON: CT brain, same date. FINDINGS: CTA HEAD: No large vessel occlusion, aneurysm, high flow vascular malformation, nidus or extravasation. Bilater al cavernous carotid calcification, without significant stenosis. Symmetric parenchymal enhancement. Patent cerebral veins. CTA NECK: There is significant motion artifact in the neck, which leaves multiple segments of the bilateral car otids and vertebral arteries inadequately evaluated. Aortic arch and proximal great vessels: Normal arch anatomy. Minimal atherosclerotic calcification. Right common carotid, carotid bifurcation, and internal carotid artery: No definite plaque.There is 0 % stenosis of the proximal right internal carotid artery relative to normal distal artery lumen diame ter (NASCET criteria). Left common carotid, carotid bifurcation, and internal carotid artery: No definite plaque.There is 0% stenosis of the proximal left internal carotid artery relative to normal distal artery lumen diamete r (NASCET criteria). Vertebral arteries: No significant plaque or stenosis. Calcified plaques in the bilateral distal intr adural vertebral artery segments and plaque at the origin of the left vertebral artery, without signi ficant stenosis. Other findings: 8mm right thyroid nodule, which requires no additional evaluation. IMPRESSION: No large vessel intracranial occlusion, high-grade intracranial stenosis, or aneurysm. Significant motion artifact in the neck resulted in several areas of nondiagnostic neck artery evalua tion. No significant stenosis, dissection, or occlusion detected in the portions of the bilateral car otids and vertebrals were adequately visualized. Reviewed, dictated and finalized at location K. MATION DESIGN ENGINEER IMPRESSION: No large vessel intracranial occlusion, high-grade intracranial stenosis, or an eurysm. Significant motion artifact in the neck resulted in several areas of nondiagnos tic neck artery evaluation. No significant stenosis, dissection, or occlusion d etected in the portions of the bilateral carotids and vertebrals were adequatel y visualized.
--- NOTE | ~2023-12-02 | MR_ITS ---
EXAMINATION: MR brain/brain stem wo/w con DATE: 12/03/2023 11:40 INDICATION: Slurred speech TECHNIQUE: Magnetic resonance imaging (MRI) of the brain and brainstem was performed without and with 16 mL Multihance intravenous contrast. Sequences included sagittal and axial T1-weighted SE, axial d iffusion-weighted FS SE, axial 3D SWAN, axial T2-weighted FLAIR, and axial T2-weighted FSE. Postcontr ast axial and coronal T1-weighted SE was obtained. Apparent diffusion coefficient (ADC) maps were cre ated. COMPARISON: Head CT and CT angiogram dated 12/02/2023 FINDINGS: There are no areas of restricted diffusion to suggest acute infarction. No intracranial hemorrhage or abnormal intracranial mass lesion. There are few scattered tiny foci of nonspecific increased T2-tk ghted signal intensity in the cerebral white matter, predominantly involving the deep and periventric ular white matter which is within normal limits for age. There are no intraparenchymal signal abnorma lities seen on the other pulse sequences. The ventricles are symmetric and normal in size with normal variant cavum septum pellucidum et vergae. There are no abnormal extra-axial fluid collections. Flow voids are seen in the cerebral arteries on the T2-weighted sequences consistent with their expected patency. Visualized orbits and soft tissues are unremarkable. There are no areas of abnormal enhancem ent on the post contrast images. IMPRESSION: 1. No acute intracranial process. 2. Minimal scattered nonspecific white matter T2 hyperintensity which is within normal limits for age and likely sequela of chronic small vessel ischemic disease. Reviewed, dictated and finalized at location A. AL ASSISTANT IMPRESSION: 1. No acute intracranial process. 2. Minimal scattered nonspecific white matter T2 hyperintensity which is within normal limits for age and likely sequela of chronic small vessel ischemic dise ase.
--- NOTE | ~2023-12-02 | CT_ITS ---
EXAMINATION: CT brain wo con DATE: 12/02/2023 19:09 INDICATION: expressive aphasia . TECHNIQUE: Computed tomography (CT) of the head was performed without intravenous contrast. The mA wa s adjusted according to patient size. Iterative reconstruction technique was employed. The dose-lengt h product was 2043.00 mGy-cm. COMPARISON: 10/14/2013. FINDINGS: Motion artifact present which persisted in multiple repeat imaging attempts. No acute intracranial hemorrhage or extra-axial fluid collection. No hydrocephalus, mass, or herniation. No acute ischemic infarct. Unremarkable dural venous sinus attenuation. No acute osseous abnormality. The aerated spaces are clear. IMPRESSION: Motion limited examination. No definite acute intracranial process detected. Results reported telephonically to Dr. Zamudio by Dr. Venegas at 7:15 PM on 12/02/2023. Reviewed, dictated and finalized at location K. NG INSPECTOR IMPRESSION: Motion limited examination. No definite acute intracranial process detected. Results reported telephonically to Dr. Zamudio by Dr. Venegas at 7:15 PM on 12/02.
[2023-12-02 17:55] VITALS: BP 98/70; PULSE 72; RESP 16; TEMP 36.4; O2SAT 98
--- NOTE | 2023-12-02 17:57 | ECG_ITS ---
Measurements Intervals [place] Rate: 56 P: 48 DC: 194 QRS: -48 QRSD: 114 T: -8 QT: 443 QTc: 429 Interpretive Statements SINUS BRADYCARDIA WITH OCCASIONAL VENTRICULAR PREMATURE COMPLEXES LOW QRS VOLTAGE IN PRECORDIAL LEADS [QRS DEFLECTION < 1.0 mV IN CHEST LEADS] LEFT ANTERIOR FASCICULAR BLOCK [QRS AXIS <= -45, QR IN I, RS IN II] COMPARED TO ECG 02/25/2023 21:54:15 NO SIGNIFICANT CHANGES Electronically Signed On 12-03-2023 8:39:45 MODELING INSTRUCTOR by Servando Manuel M.D.
[2023-12-02 18:11] VITALS: PULSE 55
[2023-12-02 18:16] VITALS: BP 104/70; PULSE 52; RESP 13; O2SAT 100
[2023-12-02 18:56] LABS: Glucose Point of Care 93 mg/dl (65-105)
[2023-12-02 19:01] LABS: Basophils Percent Auto 0.4 % (0.2-1.2); Eosinophils Absolute Auto 0.1 K/mm3 (0-0.3); Eosinophils Percent Auto 0.7 % (0-4.4); Hematocrit 42.8 % (42.0-52.0); Hemoglobin 14.3 g/dL (14.0-18.0); Immature Granulocyte Absolute 0.03 K/mm3 (0.00-0.031); Immature Granulocyte Percent A 0.3 % (0-0.5); Lymphocytes Absolute Auto 0.76 K/mm3 (0.9-3.2); Lymphocytes Percent Auto 7.5 % (18.3-44.2); Mean Corpuscular HGB Conc 33.4 g/dl (32-36); Mean Corpuscular Hemoglobin 30.5 pg (26-34); Mean Corpuscular Volume 91.3 fl (80-100); Mean Platelet Volume 10.5 fl (7.4-10.4); Monocytes Absolute Auto 0.7 K/mm3 (0.1-0.6); Monocytes Percent Auto 6.7 % (2.6-8.5); Neutrophils Absolute Auto 8.5 K/mm3 (1.3-6.7); Neutrophils Percent Auto 84.4 % (45.5-73.1); Platelet Count Result 202 k/mm3 (150-375); Red Blood Count 4.69 M/mm3 (4.6-6.20); Red Cell Distribution Width 13.8 % (11.5-14.5); White Blood Count 10.1 K/mm3 (4.5-10.0)
--- NOTE | 2023-12-02 19:07 | PC.NURSE ---
Report given to Nivia JOSHI, all questions answered
[2023-12-02 19:10] LABS: Alanine Aminotransferase 45 U/L (6-50); Albumin Level 4.2 g/dL (3.5-5.1); Alkaline Phosphatase 55 U/L (38-126); Anion Gap 8 mmol/L (8-16); Aspartate Amino Transferase 39 U/L (17-59); Bilirubin,Total 1.1 mg/dL (0.2-1.3); Blood Urea Nitrogen 15 mg/dL (9-20); Calcium 9.5 mg/dL (8.4-10.2); Carbon Dioxide 24 mmol/L (22-30); Chloride 109 mmol/L (98-107); Estimated CRCL calculation 48 ml/min; Estimated Glomerular Filt Rate > 60; Glucose 96 mg/dL (65-110); Potassium 3.6 mmol/L (3.4-5.0); Sodium 141 mmol/L (137-145)
[2023-12-02 19:16] LABS: Estimated CRCL calculation 44 ml/min; Estimated Glomerular Filt Rate 58
[2023-12-02 19:16] LABS: Partial Thromboplastin Time 22.4 SECONDS (22.3-36.8); Prothrombin Time 13.7 Seconds (11.1-14.7)
[2023-12-02 19:21] LABS: Troponin I 0.012 ng/mL (0.000-0.034)
--- NOTE | 2023-12-02 20:11 | ED.GENADULT ---
HPI - General Adult General Chief complaint: Syncope Stated complaint: SYNCOPAL EVENT Time Seen by Provider: 12/02/23 18:39 Source: family and EMS Mode of arrival: wheelchair Limitations: altered mental status History of Present Illness HPI narrative: 83-year-old with a history of CAD with multiple stents, hyperlipidemia was brought in by with a complaint of having near-syncopal episode, being confused and can not get the words out. states that he was the [employer] this evening for a all of sudden the symptoms started. He denies having any headache, chest pain arm weakness. As per the family patient has no previous history of stroke as per the family he is A&O x4 and this is not usual for him Onset (ago): hour(s) (3) Exacerbating factors: none Treatments prior to arrival: none Related Data Home Medications Medication Instructions Recorded Confirmed Adult Low Dose Aspirin 81 mg PO DAILY 02/19/22 12/03/23 tadalafil 20 mg tablet 20 mg PO DAILY PRN Erectile 02/19/22 12/03/23 Dysfunction tamsulosin 0.8 mg BYMOUTH DAILY 02/19/22 12/03/23 atorvastatin 80 mg tablet 80 mg PO DAILY 12/03/23 12/03/23 clopidogrel 75 mg tablet 75 mg PO DAILY 12/03/23 12/03/23 lisinopril 20 mg tablet 20 mg PO DAILY 12/03/23 12/03/23 nitroglycerin 0.4 mg sublingual 0.4 mg sublingual Q5M PRN Chest 12/03/23 12/03/23 tablet Pain pantoprazole 40 mg tablet,delayed 40 mg PO DAILY 12/03/23 12/03/23 release Allergies Allergy/AdvReac Type Severity Reaction Status Date / Time latex Allergy Blister Verified 12/03/23 08:14 Sulfa (Sulfonamide Allergy Swelling Verified 12/03/23 08:14 Antibiotics) Review of Systems Review of Systems: All systems reviewed & are unremarkable except as noted in HPI and below Constitutional: Constitutional: Reports no additional constitutional complaints Eyes: Eyes: Reports no additional eye complaints ENT: Reports system reviewed and no additional complaints, except as documented Cardiovascular: Cardiovascular: Reports no additional cardiovascular complaints Respiratory: Respiratory: Reports no additional respiratory complaints Gastrointestinal: Gastrointestinal: Reports no additional gastrointestinal complaints Genitourinary: Genitourinary: Reports no additional male genitourinary complaints Musculoskeletal: Musculoskeletal: Reports no additional musculoskeletal complaints Neurologic: Reports as per HPI Psychiatric: Psychiatric: Reports no additional psychiatric complaints [facility] Past Medical History Medical History (Updated 12/04/23 @ 14:58 by Sapphire Davis MD) Angina at rest Hyperlipidemia Prostate cancer Family History Family History Mother Skin cancer Diabetes mellitus Father Lung disease Social History Social History Smoking status: Former smoker Smoking end date: 12/03/1964 Alcohol intake: former Drinks per week: 2 Substance use: never Do You Feel Safe in your Home?: Yes Lack of Transportation: No Lack of Food: Never True Current Housing: I Have Housing Concerned About Future Housing: No Difficulty Paying Gas/Electric Bills: No Difficulty Paying for Meds: No Currently Unemployed: No Education: Don't Know Difficulty w/ Childcare or Family Care: No Spiritual care concerns: Yes (druze) Exam Narrative: GENERAL: Well-appearing, well-nourished, and in no acute distress. has a confused look HEAD: Normocephalic, atraumatic. EYES: PERRLA and EOMI. ENT: Nares clear, no rhinorrhea or epistaxis. Mucous membranes moist. NECK: Supple. CHEST: Clear to auscultation. No respiratory distress. HEART: Regular rate and rhythm. No murmur heard. Normal peripheral pulses. ABDOMEN: Soft, nontender, nondistended, normal active bowel sounds. EXTREMITIES: Normal range of motion. No edema. SKIN: Warm, dry, no rash. NEURO: No focal defici
[2023-12-02] MEDS: SODIUM CHLORIDE 0.9% IV 1,000 ML 999 ML (20:31)
[2023-12-02 20:40] LABS: Appearance Urine Clear (Clear); Bilirubin Urine Negative (Negative); Blood Urine Negative (Negative); Color Urine Yellow (Yellow); Glucose Urine UA Negative (Negative); Ketones Urine Negative (Negative); Leukocyte Esterase Ur Negative LEU/UL (Negative); Nitrate Urine Negative (Negative); Protein Urine Negative (Negative); Specific Grav Ur 1.015 (1.001-1.035); Urobilinogen Urine 0.2 mg/dL (<2.0); pH Urine 7.5 (5.0-9.0)
[2023-12-02 20:43] LABS: Add Urine Microscopic? NO
[2023-12-02 20:54] VITALS: BP 132/68; PULSE 64; RESP 15; O2SAT 100
[2023-12-02 23:28] VITALS: BP 106/76; PULSE 72; RESP 12; O2SAT 100
[2023-12-03] VITALS (9 sets, daily range): BP systolic 102–131; BP diastolic 54–87; PULSE 51–87; RESP 15–16; TEMP 36–36.9; O2SAT 96–100; BMI 28.9
--- NOTE | 2023-12-03 | ECHO_ITS ---
Patient Info Name: Derrek John Age: 83 years : 1940 Gender: Male Ht: 72 in Wt: 165 lbs BSA: 1.95 m2 HR: 53 bpm BP: 114 / 87 mmHg Heart Rhythm: Bradycardia Technical Quality: Good Exam Date: 12/03/2023 12:36 PM Exam Location: Echo Lab Patient Status: Outpatient Admit Date: 12/03/2023 Staff Ordering Physician: Charlene Maurice MD Trimmer Machine: Mildred Sommer RDCS Attending Provider: Tania Bazan DO Exam Type: CA echo doppler w bubble study Study Info Indications - syncoal event, r/o stroke Complete two-dimensional, color flow and Doppler transthoracic echocardiogram is performed. Summary 1. Complete two-dimensional, color flow and Doppler transthoracic echocardiogram is performed. 2. Left ventricular chamber dimension is normal. 3. Left ventricular systolic function is normal, estimated at 60-65%. 4. There is mildly increased left ventricular wall thickness. 5. The left ventricular diastolic function is grade I diastolic dysfunction. 6. Right ventricular systolic function is normal. 7. Left atrial chamber dimension is mildly enlarged. 8. Intact interatrial septum visualized by color flow and agitated saline imaging. Negative bubble study. 9. There is mild aortic valve regurgitation. 10. There is mild tricuspid valve regurgitation. Left Ventricle Left ventricular chamber dimension is normal. Left ventricular systolic function is normal, estimated at 60-65%. There is mildly increased left ventricular wall thickness. The left ventricular diastolic function is grade I diastolic dysfunction. Right Ventricle Right ventricular chamber dimension is normal. Right ventricular systolic function is normal. Left Atria Left atrial chamber dimension is mildly enlarged. Right Atria Right atrial chamber dimension is normal. Atrial Septum Intact interatrial septum visualized by color flow and agitated saline imaging. Negative bubble study. Aortic Valve The aortic valve is trileaflet. There is no aortic valve stenosis. There is mild aortic valve regurgitation. There is mild aortic valve calcification. Pulmonic Valve The pulmonic valve is not well visualized. Mitral Valve The mitral valve has thickened leaflets. There is trace mitral valve regurgitation. The mitral valve annulus is mildly calcified. Tricuspid Valve There is mild tricuspid valve regurgitation. Pericardium/Pleural There is no pericardial effusion. Inferior Vena Cava Normal inferior vena cava with >50% collapse upon inspiration consistent with normal right atrial pressure, 3 mmHg. Aorta The aortic root size at the sinus of Valsalva is normal. Left Ventricular Outflow Tract Name Value Normal LVOT 2D LVOT Diameter 2.2 cm LVOT Doppler LVOT Peak Gradient 3 mmHg LVOT Mean Gradient 2 mmHg LVOT VTI 24 cm LVOT VTI/AV VTI Ratio 0.7 LVOT Stroke Volume 86 ml LVOT CO 3.9 l/min LVOT CI 2.0 l/min/m2 Pulmonic Valve Name
--- NOTE | 2023-12-03 09:26 | WPDNEURCNPN ---
Assessment and Plan Assessment and plan (1) TIA (transient ischemic attack): Code(s): G45.9 - Transient cerebral ischemic attack, unspecified Status: Acute Plan 1. TIA 2. History of coronary artery disease with multiple stents 3. Hyperlipidemia plan is to obtain the echocardiogram as well as an EEG while he is being maintained on the medication as such. CTA has been done and will also obtain the MRI of the brain. Consult date: 12/03/23 HPI: Derrek John is a 83 year old male Admitted to the hospital through the emergency room for the complaints of syncopal episode in addition to the ongoing history of 1. Coronary artery disease with multiple stents 2. Hyperlipidemia also mentioned by the that he was confused and could not get the words out. He was at the [facility] for a and all of sudden the symptoms started he gave no history of associated headache, chest pain or generalized weakness also he gave no history of previous stroke. He has been taking low-dose aspirin 81mg daily in addition to tamsulosin 0.8mg at night and today Lorena fell 20mg daily p.r.n. basis he is allergic to sulfa and latex and does have a history of in the past prostatic cancer and hyperlipidemia in addition to angina at rest he is never a smoker and currently alcohol intake or 2 drinks per week initial exam in the emergency room was nonfocal his vital signs were normal except blood pressure 98/70 initially then 132/68 CBC was normal so as the routine lab, initial CT scan of the head was normal and CTA was also negative without evidence of high-grade intracranial stenosis or aneurysm. At present is receiving low-dose aspirin 81mg daily, atorvastatin 80mg daily, clopidogrel 75mg daily, lisinopril 20mg daily, metoprolol ER 12.5mg daily, and other medications as such Review of Systems Review of Systems: All systems reviewed & are unremarkable except as noted in HPI and below [facility] Past Medical History Medical History Angina at rest Hyperlipidemia Prostate cancer Family History Family History Mother Skin cancer Diabetes mellitus Father Lung disease Social History Social History Smoking status: Never smoker Alcohol intake: current Drinks per week: 2 Substance use: never Spiritual care concerns: No Meds Home Medications and Allergies Home Medications Medication Instructions Recorded Confirmed Type Adult Low Dose Aspirin 81 mg PO DAILY 02/19/22 12/03/23 History tadalafil 20 mg tablet 20 mg PO DAILY PRN Erectile 02/19/22 12/03/23 History Dysfunction tamsulosin 0.8 mg BYMOUTH DAILY 02/19/22 12/03/23 History atorvastatin 80 mg tablet 80 mg PO DAILY 12/03/23 12/03/23 History clopidogrel 75 mg tablet 75 mg PO DAILY 12/03/23 12/03/23 History lisinopril 20 mg tablet 20 mg PO DAILY 12/03/23 12/03/23 History metoprolol succinate 25 mg 12.5 mg PO DAILY 12/03/23 12/03/23 History tablet,extended release 24 hr nitroglycerin 0.4 mg sublingual 0.4 mg sublingual Q5M PRN Chest 12/03/23 12/03/23 History tablet Pain pantoprazole 40 mg tablet,delayed 40 mg PO DAILY 12/03/23 12/03/23 History release Allergies Allergy/AdvReac Type Severity Reaction Status Date / Time latex Allergy Blister Verified 12/03/23 08:14 Sulfa (Sulfonamide Allergy Swelling Verified 12/03/23 08:14 Antibiotics) Vital Signs Vital Signs - 24 hr 12/02/23 17:55 12/02/23 18:11 12/02/23 18:16 Temperature 36.4 C Pulse Rate 72 55 L Respiratory Rate 16 Blood Pressure 98/70 L Pulse Oximetry 98 100 Oxygen Delivery Room Air 12/02/23 18:16 12/02/23 20:54 12/02/23 23:28 Temperature Pulse Rate 52 L 64 72 Respiratory Rate 13 15 12 Blood Pressure 104/70 132/68 106/76 Pulse Oximetry 100 100 100 Oxygen Delivery 12/03/23 07:21 12/03/23 07:50 Temperature 36.2 C L
--- NOTE | 2023-12-03 10:10 | ADMGEN ---
This patient, Derrek John, was admitted to [facility] Surg Room 332-01. Patient/family oriented to hospital policies and general routines including ID bracelet, bed and alarms, visiting hours, pain management, procedures, bathroom and other care routines, personal items, smoking policy, room service/diet, and visiting hours. Information on how to activate the Rapid Response Team has been discussed. Patient/Family are encouraged to report perceived risks to care and to ask questions if they do not understand what they are told or what they should do. Report from [place] in ER.
--- NOTE | 2023-12-03 15:43 | PM.IMHP ---
H&P: HPI History of Present Illness Date/Time: 12/03/23 15:43 Chief Complaint: syncope Narrative: 83 yo male with PMH of CAD, HLD, who was brought to the ER on account of syncope. Patient noted he was at a yesterday when he passed out and was brought to the ER. patient noted he had similar episode about 2 weeks ago. they noted stiffness and post confusion. Also noted he did not eat breakfast prior to episode Denies any chest pain, focal weakness, vomiting or abd pain or diarrhea ER eval CT head and CTA head and neck no concerning findings ECHo adn EEG pendign Review of Systems Review of Systems: all other system were reviewed adn negative except as noted in the HPI above PMFSH Past Medical History Medical History (Updated 12/03/23 @ 16:08 by Charlene Maurice MD) Angina at rest Hyperlipidemia Prostate cancer Family History Family History Mother Skin cancer Diabetes mellitus Father Lung disease Social History Social History Smoking status: Former smoker Smoking end date: 12/03/1964 Alcohol intake: former Drinks per week: 2 Substance use: never Do You Feel Safe in your Home?: Yes Lack of Transportation: No Lack of Food: Never True Current Housing: I Have Housing Concerned About Future Housing: No Difficulty Paying Gas/Electric Bills: No Difficulty Paying for Meds: No Currently Unemployed: No Education: Don't Know Difficulty w/ Childcare or Family Care: No Spiritual care concerns: Yes (yazidi) Meds Home Medications and Allergies Home Medications Medication Instructions Recorded Confirmed Type Adult Low Dose Aspirin 81 mg PO DAILY 02/19/22 12/03/23 History tadalafil 20 mg tablet 20 mg PO DAILY PRN Erectile 02/19/22 12/03/23 History Dysfunction tamsulosin 0.8 mg BYMOUTH DAILY 02/19/22 12/03/23 History atorvastatin 80 mg tablet 80 mg PO DAILY 12/03/23 12/03/23 History clopidogrel 75 mg tablet 75 mg PO DAILY 12/03/23 12/03/23 History lisinopril 20 mg tablet 20 mg PO DAILY 12/03/23 12/03/23 History metoprolol succinate 25 mg 12.5 mg PO DAILY 12/03/23 12/03/23 History tablet,extended release 24 hr nitroglycerin 0.4 mg sublingual 0.4 mg sublingual Q5M PRN Chest 12/03/23 12/03/23 History tablet Pain pantoprazole 40 mg tablet,delayed 40 mg PO DAILY 12/03/23 12/03/23 History release Allergies Allergy/AdvReac Type Severity Reaction Status Date / Time latex Allergy Blister Verified 12/03/23 08:14 Sulfa (Sulfonamide Allergy Swelling Verified 12/03/23 08:14 Antibiotics) Vital Signs Vital Signs - 24 hr 12/02/23 17:55 12/02/23 18:11 12/02/23 18:16 Temperature 97.6 F Pulse Rate 72 55 L Respiratory Rate 16 Blood Pressure 98/70 L Pulse Oximetry 98 100 Oxygen Delivery Room Air 12/02/23 18:16 12/02/23 20:54 12/02/23 23:28 Temperature Pulse Rate 52 L 64 72 Respiratory Rate 13 15 12 Blood Pressure 104/70 132/68 106/76 Pulse Oximetry 100 100 100 Oxygen Delivery 12/03/23 07:21 12/03/23 07:50 12/03/23 08:00 Temperature 97.2 F L Pulse Rate 60 53 L 52 L Respiratory Rate 15 16 Blood Pressure 102/54 L 114/87 Pulse Oximetry 100 96 Oxygen Delivery 12/03/23 12:00 12/03/23 14:00 12/03/23 11:02 Temperature 96.8 F L Pulse Rate 53 L 80 Respiratory Rate 16 Blood Pressure 127/77 116/70 Pulse Oximetry 98 Oxygen Delivery 12/03/23 11:02 12/03/23 11:02 Temperature Pulse Rate Respiratory Rate Blood Pressure 117/71 122/68 Pulse Oximetry Oxygen Delivery Exam Const: General: comfortable and no acute distress HENMT: Mouth: Yes moist mucous membranes Eyes: General: appearance normal, both eyes and all related structures Resp: Effort & Inspection: normal respiratory effort Cardio: Rate: regular rate Rhythm: regular rhythm GI: GI Palp: Yes Soft to palpation an
[2023-12-03] MEDS: CLOPIDOGREL BISULFATE 75 MG TABLET PO (17:08)
[2023-12-03] MEDS: ATORVASTATIN 40 MG TABLET 80 MG PO (17:08)
[2023-12-03] MEDS: PANTOPRAZOLE 40 MG TABLET PO (17:09)
[2023-12-04] VITALS (12 sets, daily range): BP systolic 108–139; BP diastolic 66–85; PULSE 45–117; RESP 16–18; TEMP 36.5–36.8; O2SAT 96–97
[2023-12-04] MEDS: TAMSULOSIN HCL 0.4 MG CAPSULE 0.8 MG PO (09:19)
[2023-12-04] MEDS: METOPROLOL SUCCINATE EXT REL 12.5 MG TABCR PO (09:19)
[2023-12-04] MEDS: ASPIRIN 81 MG CHEWABLE TABLET PO (09:20)
[2023-12-04] MEDS: CLOPIDOGREL BISULFATE 75 MG TABLET PO (09:20)
[2023-12-04] MEDS: PANTOPRAZOLE 40 MG TABLET PO (09:20)
[2023-12-04] MEDS: lisinopriL 20 MG TABLET PO (09:20)
[2023-12-04] MEDS: ENOXAPARIN 40 MG/0.4 ML SYRINGE SUB-Q (09:20)
--- NOTE | 2023-12-04 11:26 | PM.CNCAR ---
Assessment and Plan Assessment and plan (1) Syncope: Code(s): R55 - Syncope and collapse Status: Acute Assessment and Plan: Episode of syncope as described above. Doubt a true seizure. Blood pressure was mildly low when EMS arrived so this may have been a vasovagal event, particularly in view of his concern about his girlfriend in the hospital with a stroke, and not having anything to eat that day. A course of concern are arrhythmias. Ventricular arrhythmias are possible because of his history of CAD but quite unlikely because he has normal left ventricular function. [place] arrhythmias are possible as well. Heart rates sometimes are in the upper 30s at rest, not extremely pathologic but of concern. Was not orthostatic when checked at least twice here. --30 day monitor on discharge. We can arrange this through our office or patient can follow-up with the NH. --eat regular meals --sit down when there is a prodrome --agree with discontinuing metoprolol --follow-up with usual validation leader at the [facility] (2) CAD (coronary artery disease): Code(s): I25.10 - Atherosclerotic heart disease of [place] coronary artery without angina pectoris Status: Acute Assessment and Plan: History of CAD, non-STEMI in February 2023, status post 5 stents, followed by [facility]. --continue dual anti-platelet therapy with aspirin and clopidogrel --continue atorvastatin (3) Bradycardia: Code(s): R00.1 - Bradycardia, unspecified Status: Acute Assessment and Plan: Mild bradycardia noted, nothing extreme enough on Tele to account for syncope, so far. --However, reasonable to discontinue metoprolol. Plan Okay for discharge when okay with others. Please let us know if you would like us to set up a 30 day monitor as an outpatient. History of Present Illness History of Present Illness Consult date/time: 12/04/23 11:26 Reason For Visit: CVA Narrative: Derrek John is an 83 y.o. male whom we were asked to see at the request of DR. Nevin Maurice for our advice and opinion regarding his syncope and bradycardia, in consultation. History of non-STEMI February 2023, s/p 5 stents. The patient was to perform honors (for a person with whom he was not acquainted) on 12/03/2023. He was feeling well in the morning although had not had any thing to eat. He was standing in the [employer] at 5 pm and felt shaky and per EMS he was having trouble standing and walking. He recalls a friend helping him to sit down. His sister arrived to find that he was rigid, unconscious and trembling. He was helped to the floor. There was concern that he was not breathing for 1 minute and bystanders were about to do CPR when he started to come to. He was profusely diaphoretic. The episode lasted about 3 minutes. EMS arrived and saw multifocal PVCs. Initial BP 98/61, later 85/67 and heart rate 78, O2 sat 97%, NSR. When he arrived to the emergency room he had trouble talking and seemed confused but now is back to normal. There was never any chest pain, palpitations or shortness of breath. He has been seen by Dr. Mercado he thinks he may have had a TIA. 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 Patient had an episode where he nearly passed out while visiting his sister several months ago and he had to sit down for while. He had another episode about 3 or 4 days ago while at [facility]. He was pushing his cart and felt presyncopal, thought that he was ?going down. ? He leaned over the cart, pushed it to the front of the store, ask someone to call his son and waited. He was nauseated. His son arrived, got him some food, and he felt better after an hour. During that episode there was no nausea, chest pain, shortness a breath or palpitations. Incidentally, the patient's girlfriend is hospital
--- NOTE | 2023-12-04 13:01 | WPDNEUROLOGY ---
Neurology EEG Report General Information Date of Study: 12/04/23 TEST eeg DIAGNOSIS syncopal episode CONDITION OF RECORDING awake drowsy and sleep EEG NUMBER 24-20 CLINICAL HISTORY patient reports he lost consciousness yesterday says he has not ate breakfast and became dizzy had a similar incident a couple of weeks ago. EEG DESCRIPTION Basic resting occipital frequency consists of low voltage 9 to 11 hertz per 2nd alpha admixed with low-voltage 15 to 21 hertz per 2nd beta. Low-voltage beta activity seen diffusely admixed with waxing and waning posterior alpha rhythm during drowsiness. Bilateral symmetrical sleep activity seen during sleep. Hyperventilation not done photic stimulation not done. Non paroxysmal. Nonfocal. Nonlateralizing. IMPRESSION Normal record
[2023-12-04] MEDS: ATORVASTATIN 40 MG TABLET 80 MG PO (17:24)
--- NOTE | 2023-12-04 18:21 | PM.IMPN ---
Progress Note: A&P Assessment and Plan (1) Syncope: Code(s): R55 - Syncope and collapse Status: Acute Assessment and Plan: F/u ECHO ef 60-65 and Grade 1 diastolic, orthostatic vital signs normal EEG no seizure activities, PT/OT independent cardiology evaluated and recommended discontinued metoprolol for quality assurance monitor body placement tomorrow by cardiology and onward discharge (2) TIA (transient ischemic attack): Code(s): G45.9 - Transient cerebral ischemic attack, unspecified Status: Acute Assessment and Plan: MRI brain negative, CTA head and neck unremarkable Continue Aspirin, Lipitor and Plavix (3) CAD (coronary artery disease): Code(s): I25.10 - Atherosclerotic heart disease of [place] coronary artery without angina pectoris Status: Acute Assessment and Plan: continue home meds (4) Hyperlipidemia: Code(s): E78.5 - Hyperlipidemia, unspecified Status: Acute Assessment and Plan: continue statin Plan DVT prophyalxis on sq lovenox Subjective Date/time seen: 12/04/23 18:21 Interval history: cleared by neurology and cardiology however will be here so as to get quality assurance monitor body from cardiology office tomorrow Review of Systems Review of Systems: all other system were reviewed adn negative except as noted in the HPI above Exam Const: General: comfortable and no acute distress HENMT: Mouth: Yes moist mucous membranes Eyes: General: appearance normal, both eyes and all related structures Resp: Effort & Inspection: normal respiratory effort Cardio: Rate: regular rate Rhythm: regular rhythm Neuro: General: gait normal Objective Data Vital Signs Vital Signs: Vital Signs - 24 hr 12/03/23 21:56 12/03/23 20:00 12/04/23 00:00 Temperature 98.5 F Pulse Rate 87 51 L 69 Respiratory Rate 16 Blood Pressure 131/87 Pulse Oximetry 98 12/04/23 04:00 12/04/23 05:21 12/04/23 09:19 Temperature 98.3 F Pulse Rate 49 L 54 L 80 Respiratory Rate 18 Blood Pressure 139/76 Pulse Oximetry 96 12/04/23 11:44 12/04/23 11:45 12/04/23 11:45 Temperature Pulse Rate 117 H 110 H 107 H Respiratory Rate Blood Pressure 122/68 135/85 113/77 Pulse Oximetry 12/04/23 08:00 12/04/23 12:00 12/04/23 14:00 Temperature 97.7 F Pulse Rate 45 L 63 64 Respiratory Rate 16 Blood Pressure 108/66 Pulse Oximetry 97 12/04/23 16:00 Temperature Pulse Rate 52 L Respiratory Rate Blood Pressure Pulse Oximetry Intake/Output Intake/Output: Intake & Output 12/01/23 12/02/23 12/03/23 12/04/23 23:59 23:59 23:59 23:59 Intake Total 1000 1260 831 Output Total 400 Balance 1000 860 831 Meds/Results Medications: Active Medications Generic Name Dose Route Start Last Admin Trade Name Freq PRN Reason Stop Dose Admin Aspirin 81 mg 12/04/23 08:00 12/04/23 09:20 Aspirin 81 Mg Chewable Tablet PO 81 mg DAILY@0800 [facility] Administration Atorvastatin Calcium 80 mg 12/03/23 18:00 12/04/23 17:24 Atorvastatin 40 Mg Tablet PO 80 mg EVENING [facility] Administration Clopidogrel Bisulfate 75 mg 12/03/23 17:00 12/04/23 09:20 Clopidogrel Bisulfate 75 Mg Tablet PO 75 mg DAILY [facility] Administration Enoxaparin Sodium 40 mg 12/04/23 09:00 12/04/23 09:20 Enoxaparin 40 Mg/0.4 Ml Syringe SUB-Q 40 mg DAILY [facility] Administration Lisinopril 20 mg 12/04/23 09:00 12/04/23 09:20 Lisinopril 20 Mg Tablet PO 20 mg DAILY [facility] Administration Metoprolol Succinate 12.5 mg 12/04/23 09:00 12/04/23 09:19 Metoprolol Succinate Ext Rel 12.5 Mg Tabcr PO 12.5 mg DAILY [facility] Administration Nitroglycerin 0.4 mg 12/03/23 16:10 Nitroglycerin Sl 0.4 Mg Tablet SUBLINGUAL Q5M PRN Chest Pain Pantoprazole Sodium 40 mg 12/03/23 17:00 12/04/23 09:20 Pantoprazole 40 Mg Tablet PO 40 mg DAILY@0830 [facility] Administration Perflutren Lipid Microsphere 0 ml 12/03
[2023-12-05] VITALS: PULSE 61
[2023-12-05 04:00] VITALS: PULSE 45
[2023-12-05 06:30] VITALS: BP 99/78; PULSE 50; RESP 18; TEMP 36.3; O2SAT 97
[2023-12-05 06:56] LABS: Basophils Absolute Auto 0.1 K/mm3 (0.0-0.1); Basophils Percent Auto 0.8 % (0.2-1.2); Eosinophils Absolute Auto 0.3 K/mm3 (0-0.3); Eosinophils Percent Auto 5.5 % (0-4.4); Hematocrit 38.9 % (42.0-52.0); Hemoglobin 12.9 g/dL (14.0-18.0); Immature Granulocyte Absolute 0.01 K/mm3 (0.00-0.031); Immature Granulocyte Percent A 0.2 % (0-0.5); Lymphocytes Absolute Auto 1.41 K/mm3 (0.9-3.2); Lymphocytes Percent Auto 23.3 % (18.3-44.2); Mean Corpuscular HGB Conc 33.2 g/dl (32-36); Mean Corpuscular Hemoglobin 30.8 pg (26-34); Mean Corpuscular Volume 92.8 fl (80-100); Mean Platelet Volume 10.4 fl (7.4-10.4); Monocytes Absolute Auto 0.6 K/mm3 (0.1-0.6); Monocytes Percent Auto 9.6 % (2.6-8.5); Neutrophils Absolute Auto 3.7 K/mm3 (1.3-6.7); Neutrophils Percent Auto 60.6 % (45.5-73.1); Platelet Count Result 188 k/mm3 (150-375); Red Blood Count 4.19 M/mm3 (4.6-6.20)
[2023-12-05 07:13] LABS: Alanine Aminotransferase 26 U/L (6-50); Albumin Level 3.3 g/dL (3.5-5.1); Alkaline Phosphatase 44 U/L (38-126); Anion Gap 5 mmol/L (8-16); Aspartate Amino Transferase 28 U/L (17-59); Bilirubin,Total 0.9 mg/dL (0.2-1.3); Blood Urea Nitrogen 16 mg/dL (9-20); Carbon Dioxide 23 mmol/L (22-30); Chloride 109 mmol/L (98-107); Estimated CRCL calculation 48 ml/min; Estimated Glomerular Filt Rate > 60; Glucose 96 mg/dL (65-110); Magnesium 2.2 mg/dL (1.6-2.3); Sodium 137 mmol/L (137-145)
[2023-12-05 07:38] LABS: Potassium 3.7 mmol/L (3.4-5.0)
[2023-12-05 08:00] VITALS: PULSE 58
[2023-12-05 09:08] VITALS: PULSE 62
[2023-12-05] MEDS: PANTOPRAZOLE 40 MG TABLET PO (09:08)
[2023-12-05] MEDS: lisinopriL 20 MG TABLET PO (09:08)
[2023-12-05] MEDS: ENOXAPARIN 40 MG/0.4 ML SYRINGE SUB-Q (09:08)
[2023-12-05] MEDS: CLOPIDOGREL BISULFATE 75 MG TABLET PO (09:08)
[2023-12-05] MEDS: TAMSULOSIN HCL 0.4 MG CAPSULE 0.8 MG PO (09:08)
[2023-12-05] MEDS: ASPIRIN 81 MG CHEWABLE TABLET PO (09:08)
[2023-12-05] MEDS: METOPROLOL SUCCINATE EXT REL 12.5 MG TABCR PO (09:08)
[2023-12-05 09:39] VITALS: O2SAT 95
--- NOTE | 2023-12-05 11:25 | PM.DS ---
DS: Admitting Diagnosis Discharge Date 12/05/23 Admitting Diagnosis Syncope DS: Discharge Diagnosis Discharge Diagnosis (1) Syncope: Code(s): R55 - Syncope and collapse Status: Acute DS: Summary Hospital Course Hospital Course: 83 yo male with PMH of CAD, HLD, who was brought to the ER on account of syncope. Patient noted he was at a yesterday when he passed out and? was brought to the ER. patient noted he had similar episode about 2 weeks ago. they noted stiffness and post confusion. Also noted he did not eat breakfast prior to episode Denies any chest pain, focal weakness, vomiting or abd pain or diarrhea ER eval CT head and CTA head and neck no concerning findings ECHo adn EEG pendign brain imaging, ECHO, EEG unremarkable, EKG showed bradycardia \ Neurology and cardiology evaluated, cardiology recommended discontinuing Metoprolol and event monitor Patient will have event monitor placed at cardiology office today before going home. Continue Aspirin , Plavix and Lipitor and other home meds F/u with PCP in 3-5, f/u with neurology and cardiology as instruicted Assessment and Plan (1) Syncope: ?Code(s): R55 - Syncope and collapse ?Status:?Acute ?Assessment and Plan: F/u ECHO ef 60-65 and Grade 1 diastolic, orthostatic vital signs normal EEG no seizure activities, PT/OT independent cardiology evaluated and recommended discontinued metoprolol for media monitor placement tomorrow by cardiology and onward discharge (2) TIA (transient ischemic attack): ?Code(s): G45.9 - Transient cerebral ischemic attack, unspecified ?Status:?Acute ?Assessment and Plan: MRI brain negative, CTA head and neck unremarkable Continue Aspirin, Lipitor and Plavix (3) CAD (coronary artery disease): ?Code(s): I25.10 - Atherosclerotic heart disease of [place] coronary artery without angina pectoris ?Status:?Acute ?Assessment and Plan: continue home meds (4) Hyperlipidemia: ?Code(s): E78.5 - Hyperlipidemia, unspecified ?Status:?Acute ?Assessment and Plan: continue statin Time Spent with Patient Time attestation: Total time spent providing and/or coordinating discharge services: DS: Data Data Completed and Pending Labs on day of discharge: Labs from last 24 hours 12/05/23 06:13 WBC 6.0 RBC 4.19 L Hgb 12.9 L Hct 38.9 L MCV 92.8 MCH 30.8 MCHC 33.2 RDW 14.0 Plt Count 188 MPV 10.4 Immature Gran % (Auto) 0.2 Neut % (Auto) 60.6 Lymph % (Auto) 23.3 [place] % (Auto) 9.6 H Eos % (Auto) 5.5 H Baso % (Auto) 0.8 Lymph # (Auto) 1.41 [place] # (Auto) 0.6 Eos # (Auto) 0.3 Baso # (Auto) 0.1 Abs Immat Gran (auto) 0.01 Absolute Neuts (auto) 3.7 Absolute Nucleated RBC 0.0 Nucleated RBC % 0.0 Sodium 137 Potassium 3.7 Chloride 109 H Carbon Dioxide 23 Anion Gap 5 L BUN 16 Creatinine 1.10 Estim Creat Clear Calc 48 Estimated GFR > 60 Glucose 96 Calcium 9.0 Magnesium 2.2 Total Bilirubin 0.9 AST 28 ALT 26 Alkaline Phosphatase 44 Total Protein 6.0 L Albumin 3.3 L Discharge Plan Discharge Attending physician on discharge: Charlene Maurice Consulting providers: Sapphire Davis; Bo Ortiz Discharging Clinician: Charlene Maurice Anticipated Discharge Date/Time: 12/05/23 11:19 Patient Disposition: Home, Self-Care Activity: as tolerated Diet: as tolerated Patient Instructions: Antibiotic Form, Clopidogrel (By mouth), Syncope (GEN) Stand Alone Forms: General Discharge Information Follow-up/Referrals: Bo Ortiz MD [Physician] - (f/u as instructed) Sapphire Davis MD [Physician] - (go to office for event monitor f/u as instructed) [facility] [Primary Care Provider] - (f/u in 3-5 days) Discharge Medications: Continued tamsulosin 0.8 mg BYMOUTH DAILY Rx Instructions: take two capsules by mouth once a day 30 min after the same meal each day Adult
== END 2023-12-05 12:15 | disposition home or self-care (01) ==
LOC: ANHED 12-03 07:29 → ANH3MEDSUR 12-03 12:12
PROVIDERS: Admitting Provider Internal Medicine; Emergency Provider Family Medicine; Visit Provider Internal Medicine
DX: G45.9 Transient cerebral ischemic attack, unspecified (principal); R55 Syncope and collapse; I25.10 Atherosclerotic heart disease of native coronary artery without angina pectoris; Z95.5 Presence of coronary angioplasty implant and graft; E78.5 Hyperlipidemia, unspecified; I49.3 Ventricular premature depolarization; I44.4 Left anterior fascicular block; I08.1 Rheumatic disorders of both mitral and tricuspid valves; I25.2 Old myocardial infarction; F10.90 Alcohol use, unspecified, uncomplicated; Z85.46 Personal history of malignant neoplasm of prostate; Z79.02 Long term (current) use of antithrombotics/antiplatelets; Z79.82 Long term (current) use of aspirin; Z79.899 Other long term (current) drug therapy
CPT/HCPCS: 36415; 70450; 70496; 70498; 70553; 80053; 81003; 82948; 83735; 84484; 85025; 85610; 85730; 93005; 93306; 95816; 96360; 96372; 96375; 99285; A9270; A9577; G0378; J1650; J7030; Q9967

== ENCOUNTER 2024-06-29 10:47 | Emergency (ER) | payer MEDICARE, OTHER, SELFPAY ==
--- NOTE | ~2024-06-29 | CT_ITS ---
Non-contrast Head CT History: Left-sided facial trauma Technique: Axial non-contrast imaging of the brain was performed. Dose reduction technique was used on this scan by utilizing automated exposure control and iterative reconstruction technique. The dose -length product (DLP) was 529.67 mGy-cm. Findings: There is no evidence of intracranial hemorrhage, mass lesion, or acute infarct. Brain par enchyma appears normal. The ventricles and subarachnoid spaces are normal in size. The calvarium ap pears normal. The visualized paranasal sinuses and mastoid air cells are clear. Impression: No significant abnormality seen. Reviewed, dictated and finalized at location . Impression: No significant abnormality seen.
--- NOTE | ~2024-06-29 | CT_ITS ---
CT Facial Bones and Cervical Spine Clinical Indication: Trauma Technique: Contiguous axial scans were obtained through the facial bones and cervical spine followed by coronal and sagittal reconstructions. Dose reduction technique was used on this scan by utilizing automated exposure control and iterative reconstruction technique. The dose-length product (DLP) was 453.40 mGy-cm. Findings: CT facial bones: No fractures are identified. The visualized paranasal sinuses are clear. Intraorbita l soft tissues appear normal. There is soft tissue swelling over the left cheek and infraorbital wade on. CT cervical spine: No fractures or subluxation. There is advanced degenerative disc narrowing at C4- C5, C5-C6, and C6-C7. There is moderate degenerative disc change at C3-C4. There is mild left neural foraminal narrowing at C2-C3, the left facet arthropathy. There is disc osteophyte complex and mild c anal stenosis at C3-C4, probable minimal bilateral neural foraminal narrowing. There is bilateral adilia ral foraminal narrowing, right worse than left, at C4-C5. There is mild disc osteophyte complex at th is level with probable mild canal stenosis. There is severe right neural foraminal narrowing at C5-C6 . Probable mild canal stenosis at this level. There is mild bilateral neural foraminal narrowing at C 6-C7 with probable mild canal stenosis. No prevertebral soft tissue swelling. Impression: No fracture is seen in the facial bones. No fracture or subluxation of the cervical spine. 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 Reviewed, dictated and finalized at [facility]. Impression: No fracture is seen in the facial bones. No fracture or subluxation of the cervical spine. 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
[2024-06-29 10:47] VITALS: BP 122/84; PULSE 72; RESP 18; TEMP 35.9; O2SAT 95
--- NOTE | 2024-06-29 11:09 | ED.HEATRA ---
HPI - Head Injury General Chief complaint: Head Injury Stated complaint: facial injury Time Seen by Provider: 06/29/24 11:07 Source: patient and family Mode of arrival: ambulatory Limitations: no limitations History of Present Illness HPI Narrative: 84-year-old male with a history of hypertension, dyslipidemia, BPH, CAD, diastolic dysfunction, TIA is on aspirin and Plavix was mowing his yard when he got hit on his left cheek /left infraorbital region with a piece of wood. No loss of consciousness. No headache. No vomiting. -- Contusion over his left cheek with a swelling which is noted to be 3 cm. Continuous oozing from the cheek swelling. No neck pain MD Complaint: other ( facial trauma) Onset (ago): hour(s) ( 1 hour ago) Mechanism of Injury: other ( got hit by a big piece of wood) Place: home Loss of Consciousness: no Location of injury: face Severity: mild Quality: dull Radiation: none Other Injuries: none Context: on aspirin ( on Plavix) Associated symptoms: denies other symptoms Related Data Home Medications Medication Instructions Recorded Confirmed Adult Low Dose Aspirin 81 mg PO DAILY 02/19/22 06/29/24 tadalafil 20 mg tablet 20 mg PO DAILY PRN Erectile 02/19/22 06/29/24 Dysfunction tamsulosin 0.4 mg BYMOUTH DAILY 02/19/22 06/29/24 atorvastatin 80 mg tablet 80 mg PO DAILY 12/03/23 06/29/24 clopidogrel 75 mg tablet 75 mg PO DAILY 12/03/23 06/29/24 lisinopril 20 mg tablet 10 mg PO DAILY 12/03/23 12/03/23 nitroglycerin 0.4 mg sublingual 0.4 mg sublingual Q5M PRN Chest 12/03/23 06/29/24 tablet Pain cholecalciferol (vitamin D3) 125 125 mcg PO DAILY 06/29/24 06/29/24 mcg (5,000 unit) capsule magnesium oxide 400 mg PO DAILY 06/29/24 06/29/24 Allergies Allergy/AdvReac Type Severity Reaction Status Date / Time latex Allergy Blister Verified 06/29/24 11:11 Sulfa (Sulfonamide Allergy Swelling Verified 06/29/24 11:11 Antibiotics) Review of Systems Review of Systems: All systems reviewed & are unremarkable except as noted in HPI and below Constitutional: Constitutional: Reports as per HPI and Reports no additional constitutional complaints Eyes: Eyes: Reports as per HPI and Reports no additional eye complaints ENT: Reports system reviewed and no additional complaints, except as documented and Reports as per HPI Cardiovascular: Cardiovascular: Reports as per HPI and Reports no additional cardiovascular complaints Respiratory: Respiratory: Reports as per HPI and Reports no additional respiratory complaints Gastrointestinal: Gastrointestinal: Reports as per HPI and Reports no additional gastrointestinal complaints Genitourinary: Genitourinary: Reports no additional male genitourinary complaints and Reports as per HPI Musculoskeletal: Musculoskeletal: Reports no additional musculoskeletal complaints and Reports as per HPI Integumentary/Breasts: Skin/Breast: Reports system reviewed and no additional complaints, except as docu and Reports as per HPI Comments: left cheek has a 3 cm swelling with contusion and bleeding from skin Neurologic: Reports system reviewed and no additional complaints, except as documented and Reports as per HPI Psychiatric: Psychiatric: Reports no additional psychiatric complaints and Reports as per HPI Endocrine: Endocrine: Reports no additional endocrine complaints and Reports as per HPI Hematologic/Lymphatic: Hematologic/Lymphatic: Reports no additional hematologic/lymphatic complaints and Reports as per HPI Allergic/Immunologic: Allergic/Immunologic: Reports no additional allergic/immunologic complaints and Reports as per HPI PMFSH Past Medical History Medical History Angina at rest Hyperlipidemia Prostate cancer Family History Family History Mother Skin cancer Diabetes mellitus Father Lung disease Social History Social History (Review
[2024-06-29] MEDS: TETANUS,DIPHTHERIA,AC PERTUSSIS ADULT 0.5 ML (ADACEL) IM (11:52)
[2024-06-29 12:50] VITALS: BP 130/88; PULSE 72; RESP 20; TEMP 36.7; O2SAT 95
== END 2024-06-29 12:55 | disposition home or self-care (01) ==
PROVIDERS: Emergency Provider Internal Medicine Critical Care Medicine
DX: S09.93XA Unspecified injury of face, initial encounter (principal); S00.83XA Contusion of other part of head, initial encounter; I10 Essential (primary) hypertension; E78.5 Hyperlipidemia, unspecified; I25.10 Atherosclerotic heart disease of native coronary artery without angina pectoris; Z86.73 Personal history of transient ischemic attack (TIA), and cerebral infarction without residual deficits; Z79.82 Long term (current) use of aspirin; Z79.01 Long term (current) use of anticoagulants; Z23 Encounter for immunization; Z87.891 Personal history of nicotine dependence; Z85.46 Personal history of malignant neoplasm of prostate; W22.8XXA Striking against or struck by other objects, initial encounter; Y92.007 Garden or yard of unspecified non-institutional (private) residence as the place of occurrence of the external cause
CPT/HCPCS: 70450; 70486; 72125; 90471; 90715; 99284